=== PATIENT | male | born 1930 ===

== ENCOUNTER 2018-10-04 14:23 | Inpatient (IN) | payer OTHER ==
[~2018-10-04] VITALS: Ht 162.5 cm; Wt 72.6 kg
--- NOTE | ~2018-10-04 | PR ---
[place], [place] PROGRESS NOTE NAME: XAVIER KAHN UNIT #: [id number] ROOM: 312 DOCTOR: SHAD WHITEHEAD MD BIRTHDATE: [birth year] DOS: 10/07/2018 CHIEF COMPLAINT: The patient was somnolent. SUMMARY OF THE VISIT: The patient was resting at the time that I attempted to interview him. I called out his name, put my hand gently on the shoulder, but to no avail. He seemed very much sedate. Nurses report that he still has periods of extreme agitation and mood lability, but the nighttime dose may be hanging him over into the next day. MENTAL STATUS: Limited due to his overall lack of somnolence. PLAN: I will continue to push the Exelon patch to bring it more into the therapeutic range moving it from 4.6 mg a day to 9.5 mg a day. I will lower the nighttime dose of the Risperdal orally disintegrating tablet from 2 mg at 1700 hours to 1 mg at 1700 hours to see if this will lessen the hangover somnolence. We will engage in individual and hargrove milieu activity, returning to the least restrictive environment when psychiatrically stable. SHAD WHITEHEAD MD CM:PNTRANS 0837 [id number] SHAD WHITEHEAD MD 10/07/18 1002 interface
--- NOTE | ~2018-10-04 | PROC NOTE ---
[place], [place] PROCEDURE NOTE NAME: [facility]AHN [id number] UNIT #: [id number] ROOM: 312 DOCTOR: ASPEN STUBBS BIRTHDATE: [birth year] DOS: MODIFIED BARIUM SWALLOW MEDICAL HISTORY: The patient is a pleasant 88-year-old male with a primary diagnosis of major depression, recurrent with psychotic features, and Alzheimer's dementia. PAST MEDICAL HISTORY: Includes anemia, benign prostatic hyperplasia, debility, hypothyroidism, and frequent urinary tract infection. Bedside swallowing evaluation was completed by speech language pathologist with recommendations for modified barium swallow to assess for aspiration and determine least restrictive and safest diet level. The patient has a history of being uncooperative; however, he was very cooperative for this procedure and the procedure was completed in conjunction with the radiologist. METHODS AND MATERIALS: The patient was seated upright in a wheelchair. He was viewed in the lateral plane. The patient was administered thin liquid via cup and three average size bolus amount as well as two full teaspoon of applesauce coated with barium. The patient was edentulous and immediately prior to this fluoroscopic study while he was in the fluoroscopy room, the staff members that had accompanied him reported he had pulled chunks of chicken out that he had just had for lunch out of his oral cavity. At bedside, it was recommended the patient be placed on a pureed diet. The patient was cooperative, was able to follow simple commands. He was able to administer and give himself an isolated and two sequential sips of thin liquid; however, he was assisted by FORMS BUILDER with a full two full teaspoon of applesauce mixed with barium. ORAL PHASE: The patient demonstrated moderate delay in timing to prepare a bolus and transferred anterior to posterior. Tongue to palate contact was limited and bolus formation and cohesion and control was reduced. The cohesion was moderately reduced, but control was judged as mildly reduced on thin and applesauce consistencies. The patient demonstrated mild oral residue; however, it was not of concern on all consistencies in the oral cavity. Both consistencies were noted to fall over the base of the tongue with the pureed applesauce following slower than the thin liquid and where they would fill up the vallecula and the swallow would be triggered. The average swallow time for the pharyngeal phase was 5-5.5 seconds with approximately 2.5-3.0 seconds at the level of the vallecula where the swallow was eventually triggered. Anterior preparation and attempts to orally prepare a bolus with tongue pumping applesauce were noted, probably due to reduced cognitive status and some perseveration. Solid and regular consistency was not administered due to a history of being noncooperative as well as the pureed diet being recommended at bedside due to edentulous status, confused status, and reduced cognition as well as pocketing of solid food in the cheeks and oral cavity at bedside. PHARYNGEAL PHASE: The patient demonstrated moderately deep penetration of thin liquids. It was deeper with consecutive sips versus a single isolated sip of thin liquid via cup; however, no aspiration was noted. He did not respond to [place], [place] PROCEDURE NOTE NAME: XAVIER KAHN UNIT #: [id number] ROOM: [facility] DOCTOR: ASPEN STUBBS BIRTHDATE: [birth year] the penetration and it was completely cleared there was no residue noted in the laryngeal vestibule. Pharyngeal phase was not judged as putting patient at risk for safe feeding and swallowing at this time as long as recommendations for diet and pull over machine operator strategies are implemented. The patient did demonstrate a slightly forward kyphotic natural posture, which may have approximated a slight chin tuck, which may have provided for some laryngeal or airway protection. There was very mild oral residue noted through the pharynx, mostly in the vallecula and tongue base. RECOMMENDATIONS AND IMPRESSION: It is recommended the patient be supervised for all meals and encourage independent intake. It is recommended he be seated upright with hip flexion at 90 degrees with his feet on the floor and not recline and possibly FORMS BUILDER will trial a nosey cup and straw to encourage a chin tuck posture more than what was naturally observed during the modified barium swallow for laryngeal protection, airway protection and it will be assessed at bedside by FORMS BUILDER and we will follow him for therapy. It is recommended he take single small sips of liquid via cup or straw and not consecutive sips and drinks and to avoid any tipping back of the head or head and neck extension during meals. It is recommended he alternates liquids with food and for staff to check oral cavity at the end of every meal and clear any pocketing food that is noted. It is also recommended that the alternate chills and warm foods to increase sensory awareness and oral awareness during meals. It is also recommended that food be flavored appropriately and as tolerated by recommendations for his diet level. Speech therapy to follow the patient at bedside to assess train caregivers on strategies and diet recommendations. Thank you for this referral. ASPEN STUBBS CM:PROCNOTE:PROCEDURE NOTE 1351 [id number] ASPEN STUBBS
--- NOTE | ~2018-10-04 | PR ---
[place], [place] PROGRESS NOTE NAME: XAVIER KAHN UNIT #: [id number] ROOM: 312 DOCTOR: SHAD WHITEHEAD MD BIRTHDATE: [birth year] DOS: 10/20/2018 INTERVAL NOTE CHIEF COMPLAINT: "That would be good, I will have some more coffee." SUMMARY OF THE VISIT: The patient was interviewed as he was finishing his breakfast. He had over 3/4 of his plate eaten and requested I get him some more sausage, although he could not name it, but just pointed to it. He was bright and pleasant upon approach and offered no other complaints. There was no agitation or aggression. There was no mood lability. Likewise, there was no sedation, somnolence, extrapyramidal symptoms or tardive dyskinesia. MENTAL STATUS: He is alert and oriented with significant time gaps. Mood does seem to be trending towards euthymia and affect is more appropriate. There is no danny, hypomania or psychosis. Short-term memory continues to be problematic. PLAN: I will continue his current psychotropics. Continue to engage in individual and hargrove milieu activity, returning then to the least restrictive environment when psychiatrically stable. SHAD WHITEHEAD MD CM:PNTRANS [id number] SHAD WHITEHEAD MD 10/20/18 5700 interface
--- NOTE | ~2018-10-04 | PR ---
[place], [place] PROGRESS NOTE NAME: XAVIER KAHN UNIT #: [id number] ROOM: 312 DOCTOR: SHAD WHITEHEAD MD BIRTHDATE: [birth year] DOS: 10/23/2018 CHIEF COMPLAINT: "Well if I am going, you are going to have to bring me my bags." SUMMARY OF THE VISIT: The patient was interviewed as he was sitting in the dining area, interacting with a female peer as well as a staff member. He was very pleasant and engaging in conversation with me, much more awake and alert, much more spontaneous. He still is confused and at times, his responses did not make sense to the questions asked of him, but he was pleasant in doing so. I did not see the presence of sedation, somnolence, extrapyramidal symptoms or tardive dyskinesia. MENTAL STATUS: He is alert and oriented to person, possibly place, not to time. Mood does seem to be trending solidly towards euthymia. Affect is much more appropriate. There is no symptom suggestive of danny, hypomania or psychosis. Short term memory continues to be very problematic. PLAN: I will maintain his current psychotropic regimen, continue to engage in individual and hargrove milieu activity. We are awaiting for certification to be able to discharge to [facility] and will do so once this is obtained, SHAD WHITEHEAD MD CM:PNTRANS [id number] SHAD WHITEHEAD MD 10/24/18 0352 interface
--- NOTE | ~2018-10-04 | PR ---
[place], [place] PROGRESS NOTE NAME: XAVIER KAHN UNIT #: [id number] ROOM: 312 DOCTOR: SHAD WHITEHEAD MD BIRTHDATE: [birth year] DOS: 10/18/2018 INTERVAL NOTE CHIEF COMPLAINT: "They said they were going to get me some coffee." SUMMARY OF THE VISIT: The patient was interviewed as he was sitting in a Lacy chair. He had his breakfast completed and was sitting with a cup of coffee that was 3[address] it [address]. He was pleasant and cooperative during the interview, but very confused and oftentimes his responses to me did not make sense. There was no agitation or aggression. There was no mood lability noted. Likewise, there was no sedation, somnolence, extrapyramidal symptoms, or tardive dyskinesia. MENTAL STATUS: He is alert and oriented to person, possibly place, although doubtful, not to time. Mood is fairly euthymic. Affect is appropriate. There is no danny, hypomania or psychosis. Short term memory continues to be problematic. PLAN: I will maintain his current psychotropic medication. Speech was in to reevaluate his swallow issues and felt that he is now swallowing better. This seems to be secondary to the Cogentin being added and they have advanced his diet to regular. We will continue to support and monitor. Continue to engage in individual and hargrove milieu activity, returning then to the least restrictive environment when psychiatrically stable. SHAD WHITEHEAD MD CM:PNTRANS 5 16 SHAD WHITEHEAD MD 10/18/18 1818 interface
--- NOTE | ~2018-10-04 | WRIGHTHP ---
[place], [place] PATIENT HISTORY AND PHYSICAL EXAM [id number] #: [id number] ROOM: 312 DOCTOR: SHAD WHITEHEAD MD BIRTHDATE: [birth year] DOS: 10/05/2018 INITIAL PSYCHIATRIC EVALUATION CHIEF COMPLAINT: "Oh this is a good breakfast." HISTORY OF PRESENT ILLNESS: This is an 88-year-old white male who was referred here from [facility] due to increase the mood lability and agitation. The patient apparently was living in a chcf, but moved in not too long ago with one of his daughters, this move did not go well. Once there with his daughter, he was found to be so confused and disoriented. He was not attending to his ADLs. He was not sleeping or eating well. He was episodically noncompliant with his medications and he became verbally and physically aggressive towards the daughter, requiring her to take him ultimately to the Emergency Room at [facility]. Because of the severity of his symptoms, it was felt that an inpatient psychiatric stabilization was warranted. PAST MEDICAL HISTORY: Remarkable for anemia, benign prostatic hyperplasia, debility, hypothyroidism, frequent UTIs. PAST SOCIAL HISTORY: He does not smoke cigarettes, use illicit drugs or drink alcohol. ALLERGIES: He does list an allergy to ABILIFY. STRENGTHS: Ambulatory, good verbal skills, supportive family. WEAKNESSES: Cognitive decline, poor coping skills. MENTAL STATUS: He is alert and oriented to person, possibly place, not to time. Mood does seem to be wildly labile with some depressive overtones noted. There is no symptom suggestive of danny, hypomania. He does process conversation slowly and oftentimes, his responses are off base and inappropriate. Short-term memory remains very problematic. DIAGNOSES: Major depression, recurrent with psychotic features, Alzheimer's dementia. PLAN: I have already discontinued his Seroquel, trazodone and p.r.n. Zyprexa. In lieu of Risperdal, I have started him on Exelon and Namenda to impact positively on ADLs, behavior and cognition. Given that the depressive component, I will start him on Remeron 15 mg at bedtime. We will engage in individual and hargrove milieu activity, returning to the least restrictive environment when psychiatrically stable. [place], [place] PATIENT HISTORY AND PHYSICAL EXAM NAME: XAVIER KAHN UNIT #: [id number] ROOM: 312 DOCTOR: SHAD WHITEHEAD MD BIRTHDATE: [birth year] SHAD WHITEHEAD MD CM:HISPHYS:PATIENT HISTORY AND PHYSICAL EXAMINATION [id number] SHAD WHITEHEAD MD 10/05/18 0911 interface
--- NOTE | ~2018-10-04 | EKG ---
[place], [place] ELECTROCARDIOGRAM REPORT NAME: XAVIER KAHN UNIT #: [id number] ROOM: 312 DOCTOR: CONCEPCION DRAFT REPORT BIRTHDATE: [birth year] [facility] Test Date: 2018-10-05 Test Time: 08:32:55 Pat Name: XAVIER KAHN Department: Room: 312 1 Gender: M Cp Bleacher Operator: Ginger Arriola : 1930 Requested By: NALLELY ORTIZ Order Number: [id number] Reading MD: Dillon Jordan MD Measurements Intervals [place] Rate: 70 P: -6 [place]: 177 QRS: -41 QRSD: 106 T: 44 QT: 412 QTc: 445 Interpretive Statements Sinus rhythm Multiple ventricular premature complexes Left axis deviation Low voltage, precordial leads No previous ECG available for comparison Electronically Signed On 10-05-2018 9:47:54 PDT by Dillon Jordan MD CM:EKGRPT:ELECTROCARDIOGRAM REPORT 0832 0947 NALLELY ORTIZ EPIPHANY DRAFT REPORT NALLELY ORTIZ
--- NOTE | ~2018-10-04 | PR ---
[place], [place] PROGRESS NOTE NAME: XAVIER KAHN UNIT #: [id number] ROOM: 312 DOCTOR: SHAD WHITEHEAD MD BIRTHDATE: [birth year] DOS: 10/19/2018 CHIEF COMPLAINT: "I am ready for breakfast." SUMMARY OF THE VISIT: The patient was interviewed as he was resting quietly in a Lacy chair. At first, he was sleeping, but he awoke easily and engaged readily in conversation, reporting that he had not yet eaten breakfast. This fact was confirmed by nurse's aides who reported that he was sleeping when they offered him breakfast and they were going to give him his breakfast now. Nurses report that he had a very good day yesterday until late afternoon, early evening when his behavior became so problematic, it required him to have a p.r.n. with resultant somnolence. This morning, he was bright and pleasant, although somewhat somnolent. There was no agitation or aggression noted. MENTAL STATUS: He is alert and oriented to self, unclear of place, certainly not time. Mood does seem to be relatively euthymic this morning as has most mornings. There is no hypomania or danny. There was no gross psychosis. Short-term memory continues to be problematic. PLAN: I will go ahead and increase his 1700 dose of Risperdal from 0.5 mg to 1 mg to see if this can head off the . I may have to adjust the time accordingly, but we will monitor over the next day or two to determine the appropriate time and dose of the Risperdal to give him to prevent the escalation in behavior. We will continue to engage him in individual and hargrove milieu activity, returning to the least restrictive environment when psychiatrically stable. SHAD WHITEHEAD MD CM:PNTRANS 0008 SHAD WHITEHEAD MD 10/20/18 0415 interface
--- NOTE | ~2018-10-04 | PR ---
[place], [place] PROGRESS NOTE NAME: XAVIER KAHN UNIT #: [id number] ROOM: 312 DOCTOR: SHAD WHITEHEAD MD BIRTHDATE: [birth year] DOS: 10/09/2018 CHIEF COMPLAINT: "Yeah, I'll take a cup of coffee black with sugar, please." SUMMARY OF THE VISIT: The patient was interviewed as he was sitting in a Lacy chair. He had already eaten his breakfast and was sitting quietly watching television. He stopped and engaged in conversation with me reporting that he slept well, had a good breakfast and was feeling well. I asked him if he wanted or needed anything else and he did ask for the cup of black coffee with sugar. He was bright and pleasant. Nurses, however, note that he does sundown in the evening and becomes increasingly confused and agitated. MENTAL STATUS: This morning, he is alert and oriented to person, place, approximate to time. Mood does seem to be more euthymic. Affect is more appropriate. There is no danny or hypomania. No gross psychosis at this time. He does process conversation slowly and his responses are not always appropriate. Short-term memory remains problematic. PLAN: I will increase his Namenda from 5 mg twice a day to 10 mg in the morning and 5 mg at bedtime to augment the effectiveness of the Exelon patch, continue to engage in individual and hargrove milieu activity, returning to the least restrictive environment when psychiatrically stable. SHAD WHITEHEAD MD CM:PNTRANS 0922 1637 SHAD WHITEHEAD MD 10/09/18 1638 interface
--- NOTE | ~2018-10-04 | PR ---
[place], [place] PROGRESS NOTE NAME: XAVIER KAHN UNIT #: [id number] ROOM: 312 DOCTOR: SHAD WHITEHEAD MD BIRTHDATE: [birth year] DOS: 10/06/2018 CHIEF COMPLAINT: The patient was somnolent. SUMMARY OF THE VISIT: The patient was resting in a chair. He was sleeping heavily. He had a very poor afternoon and evening and nurses report that after 6 p.m., he became increasingly combative and agitated and aggressive. He was urinating on the floor stripping naked, combative with hands on care, sexually inappropriate to the point of grabbing female staff's breasts and buttocks. The patient was very difficult to redirect and required p.r.n. intervention. MENTAL STATUS: Limited due to his somnolence. PLAN: I will discontinue the Remeron in lieu of Celexa 10 mg in the morning to decrease libido and combat depressive symptoms. I will increase his Namenda to 5 mg b.i.d. as it augments the effectiveness of the Exelon to improve and maintain ADLs, behavior and cognition. I will increase his Risperdal to 0.5 mg in the a.m., increasing the nighttime dose to 2 mg and also giving it at 1700 hours. We will engage in individual and hargrove milieu activity, returning to the least restrictive environment when psychiatrically stable. SHAD WHITEHEAD MD CM:PNTRANS 3 SHAD WHITEHEAD MD 10/06/1825 interface
--- NOTE | ~2018-10-04 | PR ---
[place], [place] PROGRESS NOTE NAME: XAVIER KAHN UNIT #: [id number] ROOM: 312 DOCTOR: SHAD WHITEHEAD MD BIRTHDATE: [birth year] DOS: 10/15/2018 INTERVAL NOTE CHIEF COMPLAINT: "This breakfast is good." SUMMARY OF THE VISIT: The patient was interviewed as he was sitting, eating his eggs. He engaged readily in conversation. He was bright and pleasant, but confused. He offered no complaints and seemed content eating his breakfast without any difficulty. MENTAL STATUS: He is alert and oriented to person, unclear place, certainly not time. Mood for the most part seems fairly euthymic this morning. There is no symptom suggestive of hypomania or danyn. There were no gross psychotic symptoms. No auditory or visual hallucinations were present. No paranoia or delusions. Short term memory continues to be problematic. PLAN: I will maintain his current psychotropic regimen. We will monitor for his sundowning behavior and see if the evening medicines need to be adjusted. Meanwhile, we will support and monitor and engage in individual and hargrove milieu activities. SHAD WHITEHEAD MD CM:PNTRANS 0858 [id number] SHAD WHITEHEAD MD 10/15/18 0916 interface
--- NOTE | ~2018-10-04 | PR ---
[place], [place] PROGRESS NOTE NAME: XAVIER KAHN UNIT #: [id number] ROOM: 312 DOCTOR: SHAD WHITEHEAD MD BIRTHDATE: [birth year] DOS: 10/10/2018 INTERVAL NOTE CHIEF COMPLAINT: "Did I have lunch yet, am I cold." SUMMARY OF THE VISIT: This patient was interviewed as he was resting quietly on a mattress placed in the quiet room next to the drawing of a fireplace. The patient seemed to respond by turning every question I asked of him to a question back to me. He was pleasant, however, and not agitated. Nurses report that he does have episodes of becoming increasingly more agitated, most of these occurring later in the afternoon and early evening. He does respond though to redirection. MENTAL STATUS: Limited by his inability to participate fully. For the most part, he was somewhat echolalic responding to my questions with a question of its own. He was not exhibiting any agitation or aggression. There were no signs of hypomania or danny and there were no gross psychotic symptoms. I was not able to fully test his memory because he was somewhat somnolent. PLAN: At this point in time, I will bring the Namenda to therapeutic at 10 b.i.d. I will renew his p.r.n. Ativan should he require intervention. Continue to engage in individual and hargrove milieu activity, returning to the least restrictive environment when psychiatrically stable. SHAD WHITEHEAD MD CM:PNTRANS 1321 [id number] SHAD WHITEHEAD MD 11/21/18 0931 interface
--- NOTE | ~2018-10-04 | PR ---
[place], [place] PROGRESS NOTE NAME: XAVIER KAHN UNIT #: [id number] ROOM: 312 DOCTOR: SHAD WHITEHEAD MD BIRTHDATE: [birth year] DOS: 10/17/2018 CHIEF COMPLAINT: "I need something green and red here." SUMMARY OF THE VISIT: The patient was interviewed as he was finishing his breakfast. He had everything, but his cream of wheat eaten. He seemed fixated on wanting something else and one of the nurses' aid mentioned to me that he was looking for something green and red on his plate. He was pleasant and cooperative and voiced no other complaints. At times, he makes little sense in his responses, but he is pleasant in doing so. There was no agitation or aggression and no inappropriate behavior. MENTAL STATUS: He remains alert and oriented to self, possibly place, not to time. Mood for the most part is fairly euthymic. There was no hypomania or danny. No gross psychosis noted. Short term memory continues to be problematic. PLAN: I will have them recheck a swallow eval. The last swallow eval that was done was done just as he was starting on the Cogentin and did not have an adequate time to respond to it. I will hope that he will pass the swallow evaluation and his diet then can be advanced and he can eat more normal foods. Otherwise, I will maintain his current psychotropic regimen, which includes Exelon capsules, Namenda, Remeron, and Risperdal. We will discharge then to the least restrictive environment when psychiatrically stable. SHAD WHITEHEAD MD CM:PNTRANS 0928 1304 SHAD WHITEHEAD MD 10/17/18 1305 interface
--- NOTE | ~2018-10-04 | PR ---
[place], [place] PROGRESS NOTE NAME: XAVIER KAHN UNIT #: [id number] ROOM: 312 DOCTOR: SHAD WHITEHEAD MD BIRTHDATE: [birth year] DOS: 10/12/2018 INTERVAL NOTE CHIEF COMPLAINT: "Yeah, I guess it is time for lunch. Is it here?" SUMMARY OF THE VISIT: The patient was interviewed as he was sitting in a Lacy chair. He engaged readily in conversation. It was short and simple, very vague. There was no agitation or aggression despite the fact that I was rounding with a female medical student, he was not sexually inappropriate in any way. Nurses do note that speech therapy has been up in our concern that he is having swallow difficulties. It is possible this could be related in part to his Risperdal. MENTAL STATUS: He is alert and oriented with significant time gaps, certainly not oriented to how long he has been here. Mood does seem to be relatively euthymic this morning. There is no danny or hypomania. There is no gross psychosis noted. PLAN: I will go ahead and add 0.5 mg of Cogentin twice daily. Continue to monitor and support, engage in individual and hargrove milieu activity, returning to the least restrictive environment when psychiatrically stable. SHAD WHITEHEAD MD CM:PNTRANS [id number] SHAD WHITEHEAD MD 10/12/18 1708 interface
--- NOTE | ~2018-10-04 | PR ---
[place], [place] PROGRESS NOTE NAME: XAVIER KAHN UNIT #: [id number] ROOM: 312 DOCTOR: SHAD WHITEHEAD MD BIRTHDATE: [birth year] DOS: 10/22/2018 CHIEF COMPLAINT: "Grab a crayon and help me." SUMMARY OF THE VISIT: The patient was interviewed as he was engaging in an activity. He was coloring a coloring page very precisely. He was bright and pleasant upon approach and voiced no complaints. He even offered for me to help him. Nurses report that he had a bad evening and did not sleep well, but did eventually when he was given some Vistaril, which is very effective as a p.r.n. without sedation or somnolence afterwards. MENTAL STATUS: He is alert and oriented to person, possibly place, but not to time. Mood does seem to be more euthymic. Affect is more appropriate. There is no danny or hypomania. There is no gross psychosis. Short term memory continues to be poor. PLAN: I will go ahead and order him Rozerem as an additional p.r.n. in case he requires intervention to aid sleep. This is a non-addicting option. We will continue to engage in individual and hargrove milieu activity, returning to the least restrictive environment when psychiatrically stable. SHAD WHITEHEAD MD CM:PNTRANS [id number] SHAD WHITEHEAD MD 10/22/18 1314 interface
--- NOTE | ~2018-10-04 | CON ---
[place], [place] REPORT OF CONSULTATION NAME: XAVIER KAHN UNIT #: [id number] ROOM: 312 DOCTOR: PHD JUSTIN ETTA BIRTHDATE: [birth year] DOS: 10/09/2018 HISTORY OF PRESENT ILLNESS: The patient is an 88-year-old male referred by Dr. Rodríguez for competency evaluation. At the present time, the patient is on the [facility] at [facility]. He had been living in a longterm, but moved in recently with one of his daughters, which was not successful for the patient as he became confused and disoriented. He states that he is and has 8 children; one of his daughters is his power of assistant prosecuting attorney. 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 He also states that he served in the [employer] during . He does not drink alcohol, smoke cigarettes or use illegal drugs. PAST MEDICAL HISTORY: Anemia, benign prostatic hyperplasia, debility, hypothyroidism and frequent UTIs. MEDICATIONS: Namenda, Exelon, Remeron, Risperdal, Cardura, Synthroid, Zofran, Systane, Geodon and Ativan. The patient was sitting comfortably, in no apparent distress. He was awake, alert and oriented to person. He was pleasant and cooperative with the evaluation. Mood was stable and affect was restricted in range. He denied suicidal and homicidal ideation, plan, and intent. Speech was slow and at times difficult to understand. Receptive and expressive language appeared within normal limits conversationally. At times, the patient appeared to be responding to unseen objects such as an animal and a picture of [place]. He also stated that a patient walking by was from [place]. He did not appear to be in any distress when discussing this. When discussing [place], his thoughts appeared disjointed with significant confusion. He had a difficult time with both short and long-term memory. Insight and judgment were poor. In my opinion, the patient is not competent to make informed healthcare decisions at this time and all healthcare decisions should be deferred to his power of assistant prosecuting attorney. DIAGNOSIS: Major depressive disorder, recurrent, severe with psychotic features; unspecified neurocognitive disorder. RECOMMENDATIONS: In my opinion, the patient is not competent to make informed healthcare decisions and all healthcare decisions should be deferred to his healthcare power of assistant prosecuting attorney. Thank you very much for this consult. [place], [place] REPORT OF CONSULTATION NAME: XAVIER KAHN Kendrick UNIT #: [id number] ROOM: 312 DOCTOR: JUSTIN, PHD ETTA BIRTHDATE: [birth year] Lexi Hassan, PhD CM:CONSTR:REPORT OF CONSULTATION 1629 10/10/18 1411 interface
--- NOTE | ~2018-10-04 | PR ---
[place], [place] PROGRESS NOTE NAME: XAVIER KAHN UNIT #: [id number] ROOM: 312 DOCTOR: SHAD WHITEHEAD MD BIRTHDATE: [birth year] DOS: 10/21/2018 CHIEF COMPLAINT: "Morning." SUMMARY OF THE VISIT: The patient was interviewed as he was resting in a Lacy chair in the dining area. He awoke with some prompting. He engaged in brief superficial conversation and voiced no complaint. There was no agitation or mood lability. He requested some hot coffee and then closed his eyes and nodded off back into sleep. MENTAL STATUS: He is alert and oriented to person, unclear place, certainly not time. Mood for the most part is euthymic. Affect is appropriate. There is no hypomania or danny. There are no gross psychotic symptoms. He does process conversation slowly and short term memory continues to be poor. PLAN: I will maintain his current psychotropic regimen, engage in individual and hargrove milieu activity, returning to the least restrictive environment when psychiatrically stable. SHAD WHITEHEAD MD CM:PNTRANS [id number] SHAD WHITEHEAD MD 10/21/18 1132 interface
--- NOTE | ~2018-10-04 | PR ---
[place], [place] PROGRESS NOTE NAME: XAVIER KAHN UNIT #: [id number] ROOM: 312 DOCTOR: SHAD WHITEHEAD MD BIRTHDATE: [birth year] DOS: 10/11/2018 INTERVAL NOTE CHIEF COMPLAINT: The patient was somnolent and sleeping in his Lacy chair, unresponsive to my verbal prompts SUMMARY OF THE VISIT: The patient was attempted to be interviewed as he was sitting in his Lacy chair. I attempted to call his name repeatedly. I did touch his shoulder and call his name and he did not respond. The patient had become increasingly agitated as the day progressed requiring p.r.n. intervention with Ativan, which eventually did stop the agitation, but unfortunately is causing residual somnolence this morning. My mental status examination is impaired due to his overall level of somnolence. PLAN: I will go ahead and increase the Exelon capsules from 4.5 mg twice a day to 6 mg twice a day to maximize potential benefit in improving or maintaining ADLs, behavior and cognition. We will monitor and support. We will engage in individual and hargrove milieu activity, returning to the least restrictive environment when psychiatrically stable. HSAD WHITEHEAD MD CM:PNTRANS [id number] SHAD WHITEHEAD MD 10/11/18 2336 interface
--- NOTE | ~2018-10-04 | PR ---
[place], [place] PROGRESS NOTE [id number] UN[facility] #: [id number] ROOM: 312 DOCTOR: SHAD WHITEHEAD MD BIRTHDATE: [birth year] DOS: 10/08/2018 CHIEF COMPLAINT: "Will have some coffee, but I have to go get my money first." SUMMARY OF THE VISIT: The patient was interviewed as he was sitting in a Lacy chair in the dining area. When asked if he had breakfast, he reported that he had yet to pay for it. When I asked if he would like some coffee again, he stated he needed to pay for it first. When I told him that all of this had been taking care of for him, he smiled, but still wanted to go get his money. He was fairly pleasant upon approach this morning. Nurses, however, report that he did not sleep very well last night, only about 4-1/2 hours and did not eat dinner. He remains grossly confused. MENTAL STATUS: He is alert and oriented to self, unclear place, certainly not time. Mood seems still down. Affect flat, blunted. There is no danny or hypomania or gross psychosis. Short term memory is poor and he processes slowly. PLAN: Yesterday, I discontinued his Remeron in lieu of Celexa. However, I do think lack of sleep and poor appetite outweigh the risk of the sexually inappropriate behavior, so I will switch him off the Celexa back on to the Remeron, if the sexual behavior becomes problematic, I have other options to decrease this behavior. We will monitor and support, engage in individual and hargrove milieu activity, returning to the least restrictive environment when psychiatrically stable. SHAD WHITEHEAD MD CM:PNTRANS [id number] SHAD WHITEHEAD MD 10/08/18 1006 interface
--- NOTE | ~2018-10-04 | PR ---
[place], [place] PROGRESS NOTE NAME: XAVIER KAHN UNIT #: [id number] ROOM: 312 DOCTOR: SHAD WHITEHEAD MD BIRTHDATE: [birth year] DOS: 10/16/2018 INTERVAL NOTE CHIEF COMPLAINT: "If you are buying, I have a cup of coffee." SUMMARY OF THE VISIT: The patient was interviewed as he was eating his second breakfast of the morning. He was bright and pleasant upon approach. He engaged readily in conversation. When I did ask him if he would like a cup of coffee, he replied black please if I was buying. He was not agitated in any way. There were no inappropriate comments made. No sexual behavior was noted and he seems to be outwardly tolerating his current medication regimen. MENTAL STATUS: He is alert and oriented to person, possibly place, certainly not time. Mood does seem to be trending towards euthymia. Affect is much more appropriate. There is no danny or hypomania noted. There are no gross psychotic symptoms. Short term memory continues to be problematic. Otherwise, he is intact. PLAN: I will continue his current psychotropic regimen, continue to engage in individual, and hargrove milieu activities, returning to the least restrictive environment when psychiatrically stable. SHAD WHITEHAED MD CM:PNTRANS [id number] SHAD WHITEHEAD MD 10/16/18 1413 interface
[2018-10-04] MEDS ORDERED: ACETAMINOPHEN325 M2 PO (14:36)
[2018-10-04] MEDS ORDERED: CARDURA4 MG PO (14:37)
[2018-10-04] MEDS ORDERED: Synthroid,Lev100 MCG PO (14:39)
[2018-10-04] MEDS ORDERED: ATIVAN2 MG/1 ML IV (14:46)
[2018-10-04] MEDS ORDERED: ATIVAN0.5 MG PO (14:47)
[2018-10-04] MEDS ORDERED: SYSTANE BALANCE10 M1 OP (14:49)
[2018-10-04] MEDS ORDERED: ZYPREXA2.5 MG PO (14:49)
[2018-10-04] MEDS ORDERED: ZYPREXA2.5 MG IM (14:51)
[2018-10-04] MEDS ORDERED: QUETIAPINE FUMA50 M1 PO (14:55)
[2018-10-04] MEDS ORDERED: ONDANSETRON4 MG/5 M2 IV (14:55)
[2018-10-04] MEDS ORDERED: TRAZODONE50 MG PO (15:05)
[2018-10-04 19:45] VITALS: BP 103/71
--- NOTE | 2018-10-04 19:45 | NUR ---
XAVIER KAHN a 88 year old M admitted via ambulance from the OTHER as a emergency 72 hr. hold admission. Arrived on unit at 194. ALLERGIES: ABILIFY. Vital signs are: 97.9-78-17 103/71. The client is currently pink slipped and refuses to participate in any of admission paperwork. Admitted under the services of Dr. CHARLEY BLANCO,SHAD. A search was conducted and hazardous articles were removed. Client was oriented to the unit. MONET BERNARD
[2018-10-04 20:00] VITALS: BP 103/71
--- NOTE | 2018-10-04 20:00 | NUR ---
Called and notified Dr. Cortez regarding patient arrived for admission.
--- NOTE | 2018-10-04 20:30 | NUR ---
Dr. Lane here and examined patient. Awaiting orders.
--- NOTE | 2018-10-04 20:35 | NUR ---
Healing scab noted on patient's rt.outer elbow. Made aware to doctor.
--- NOTE | 2018-10-05 05:44 | NUR ---
Patient did not sleep at all throughout shift. Q 15 minute shift check continued and maintained.
[2018-10-05 07:24] LABS: BASO % 0.2 % (0.0-1.0); EOS # 0.1 10*3/uL (0.0-0.4); EOS % 0.7 % (1.0-4.0); HEMOGLOBIN 10.9 g/dl (14.0-18.0); LYMPH # 1.3 10*3/uL (1.3-4.4); MEAN CELL VOLUME 95.8 fl (80.0-94.0); MEAN CORPUSCULAR HGB 30.7 pg (27.0-31.0); MEAN CORPUSCULAR HGB CONC 32.1 g/dl (33.0-37.0); MONO # 0.6 10*3/uL (0.1-1.0); MONO % 7.3 % (3.0-9.0); NEUT # 6.7 10*3/uL (2.3-7.9); NEUT % 76.6 % (47.0-73.0); PLATELET COUNT AUTOMATED 182 10*3/uL (130-400); RED BLOOD COUNT 3.55 10*6/uL (4.50-5.90); RED CELL DISTRI WIDTH 14.6 % (0-14.5); WHITE BLOOD COUNT 8.7 10*3/uL (4.8-10.8)
[2018-10-05 07:25] VITALS: BP 118/55
[2018-10-05 08:04] LABS: ALBUMIN 2.8 gm/dl (3.1-4.5); ALKALINE PHOSPHATASE 185 U/L (45-117); BUN 14 mg/dl (7-24); CHLORIDE 108 mmol/L (98-107); CHOLESTEROL 140 mg/dL (<200); CREATININE 0.88 mg/dL (0.70-1.30); FREE T4 1.18 ng/dl (0.76-1.46); HDL CHOLESTEROL 45 mg/dl (40-60); LDL CHOLESTEROL 80 mg/dL (9-159); POTASSIUM 3.6 mmol/L (3.5-5.1); SGOT/AST 25 IU/L (3-35); SGPT/ALT 42 U/L (12-78); SODIUM 140 mmol/L (136-145); TRIGLYCERIDES 73 mg/dl (<150); VLDL CHOLESTEROL 15 mg/dL (6-40)
--- NOTE | 2018-10-05 08:15 | NUR ---
Treatment Plan meeting with Dr. Marcos RN and Agricultural Chemist. Plan for discharge Next week. Will reach out to family today to discuss discharge Plans.
--- NOTE | 2018-10-05 08:18 | NUR ---
PATIENT IS ALERT TO SELF, ABLE TO VOICE NEEDS. COMPAINING OF CHEST PAIN, NOT ABLE TO RATE PAIN. ASKED HOW LONG PAIN BE GOING ON? PATIENT STATED 50. ASKED IF PAIN IS SPREADING? PATIENT STATED YES, BUT DID NOT STATE WHERE. NO FACIAL GRIMACING, NAUSEA OR VOMITING PRESENT. PATEINT EATING BREAKFAST WITHOUT DIFFICULTY. VITALS: 97.2, 89, 18, 113/73, 100% ON 2 LITERS.
[2018-10-05 08:32] VITALS: BP 108/58
--- NOTE | 2018-10-05 08:54 | NUR ---
PATIENT EKG AND TROPIN LEVELS ARE BACK, MANUAL BP108/58. DR. ORTIZ NOTIFED.
--- NOTE | 2018-10-05 09:29 | NUR ---
psychosocial hx completed.
[2018-10-05 09:30] LABS: VITAMIN D, 25-HYDROXY 30.4 ng/mL (30-100)
--- NOTE | 2018-10-05 09:54 | NUR ---
MANUAL BP 98/84, DR. ORTIZ NOTIFIED, HOLD CARDURA AND RECHECK BP IN 1 HR.
--- NOTE | 2018-10-05 11:08 | NUR ---
P: VOICING DELUSIONAL THOUGTHS OF BEING IN A BILLARD CLUB WHILE COLORING PICTURE AND AFTER TOILETING IN THE JUNGLE, AGGESSIVE WITH TOILETING NEEDS I: ONE ON ONE, REDIRECTED/REORIENTATION, STEP BY STEP INSTRUCTION DURING HANDS ON CARE. PROVIDED SPACE R: SPACE PROVIDED EFFECTIVE. PATIENT IS ALERT TO PERSON WITH CONFUSION; NOT ABLE TO COMPREHEND WITH WHAT IS BEING ASKED OF HIM OR FOLLOW SIMPLE DIRECTION. MOOD IS IRRITABLE AT TIMES. NO VOICED STATEMENT OF HI/SI OR PAIN. RESPONDING TO INTERNAL STIMULI. Q 15 MINUTE SAFETY CHECKS. MEDICATION COMPLIANT. P: CONTINUE TO MONITOR MOOD, CONFUSION AND AGGRESSION; PROVIDE ONE ON ONE, REDIRECTION/ORIENTATION AND SPACE NEEDED.
--- NOTE | 2018-10-05 11:30 | NUR ---
Spoke with patient Daughter Anaya via telephone. Pt. will require placement at discharge. Daughter has been caring for patient at home. His care has become overwhelming. She states that he was in the process at [facility] of transferring to [facility] and was sent here to [facility].
--- NOTE | 2018-10-05 15:49 | NUR ---
CAMILLA completed online. PASRR submitted successfully. Faxed required Documentation to [facility] for further review Assessment. Copy placed in Patient Chart.
--- NOTE | 2018-10-05 16:06 | NUR ---
Shift chart check completed.
[2018-10-05 20:00] VITALS: BP 149/84
--- NOTE | 2018-10-06 00:44 | NUR ---
PT PRESENTED WITH A LABILE MOOD THIS EVENING. PLEASANT ONE MINUTE & BECOMES AGITATED WITH HANDS ON CARE. ALERT TO PERSON ONLY. UNRECEPTIVE TO REDIRECTIONS & REQUIRES DIRECTIVES & PROMPTING. ATE HS SNACK. COMPLIANT TAKING HS MEDICATIONS WHOLE & WAS GIVEN ATIVAN 1 MG PO @ 1999 FOR INCREASED ANXIETY & BEHAVIORS WHICH HAS BEEN EFFECTIVE PT WAS NOTED TO REST QUIETLY IN BED WITH NO COMPLAINTS VOICED.PT ALSO VOICED GRANDIOSE DELUSIONS & SATED THAT HE WAS WORKING ON HIS CAR WHILE SITTING INT A GERICHIAR .
--- NOTE | 2018-10-06 02:24 | NUR ---
PT WAS ASSISTED WITH A SHOWER EARLIER. ATIVAN HAS BEEN MINIMALLY EFFECTIVE & PT SLEPT IN BED FROM 5- 0. HE WAS ATTEMPTING TO CLIMB OUT OF BED SEVERAL TIMES. HE WAS INCONTINENT OF BM & URINE. WHEN GIVEN HANDS ON CARE HE ATTEMPTED TO HIT, KICK & BITE STAFF. PT WAS ASSISTED TO THE QUIET ROOM DIRECTLY IN FRONT OF THE NURSES STATION & HIS MATTRESS WAS LAID ON THE FLOOR & COVERED WITH BLANKETS FOR PTS SAFETY WHERE HE COULD BE WATCHED CLOSER. HE AGAIN ATTEMPTED TO HIT, KICK & BITE STAFF & WAS MEDICATED WITH GEODON 10 MG IM @ 0200 FOR INCREASED AGGRESSION & AGITATION.
--- NOTE | 2018-10-06 05:49 | NUR ---
GEODON HAS BEEN EFFECTIVE & PT HAS CALMED DOWN. HAS BEEN SLEEPING SINCE 0230.
--- NOTE | 2018-10-06 07:38 | NUR ---
PT REMAINS ON MATTRESS ON FLOOR AT THIS TIME, AWAKE AND ALERT, PT REFUSING TO LEAVE CLOTHING OR BLANKETS ON AT THIS TIME. REMAINS DIRECTLY ACROSS FROM NURSE'S STATION.
[2018-10-06 07:55] VITALS: BP 133/65
--- NOTE | 2018-10-06 08:43 | NUR ---
ON UNIT TO SEE PT AT THIS TIME, UPDATE GIVEN.
--- NOTE | 2018-10-06 09:30 | NUR ---
ON UNIT TO SEE PT AT THIS TIME
--- NOTE | 2018-10-06 11:03 | NUR ---
P- CONFUSION, MOOD LABILITY, POOR ST/LT MEMORY. NAPPING INTERMITTENTLY THROUGHOUT THE MORNING, EASILY AROUSABLE VIA VERBAL/TACTILE STIMULI. I- ORIENTATION, MOOD AND BEHAVIOR ASSESSED. ASSESSED PT FOR SI/HI, INTENT OR PLAN. ASSESSED PT FOR S/S HALLUCINATIONS, PARANOIA AND/OR DELUSIONS. MEDICATIONS ADMINISTERED PER PHYSICIAN'S ORDERS. ASSISTANCE WITH ADL CARE PROVIDED NEEDED. ENCOURAGED PT TO ATTEND AND PARTICIPATE IN RAYMOND MILIEU GROUPS AND ACTIVITIES. R- PT IS ALERT AND ORIENTED TO NAME ONLY, CONFUSION NOTED IN ALL OTHER AREAS. RESPS EASY AND EVEN ON ROOM AIR. MOOD REMAINS LABILE, AFFECT IS FLAT. SPEECH IS SOFT, IRRELEVANT AT TIMES, ABLE TO ANSWER SIMPLE QUESTIONS. PT DENIES SI/HI, INTENT OR PLAN. PT DENIES HALLUCINATIONS, NO RESPONSE TO INTERNAL STIMULI NOTED. NO PARANOIA OR DELUSIONS NOTED. PT NAPPING INTERMITTENTLY T/O MORNING THIS DATE, EASILY AROUSABLE VIA VERBAL/TACTILE STIMULI. NO DISTRESS NOTED. NO AGGRESSIVE BEHAVIORS OF THIS TIME IN THE SHIFT. P- PLAN TO CONTINUE CURRENT TREATMENT; CONTINUE TO MONITOR MOOD AND BEHAVIORS. PROVIDE APPROPRIATE REORIENTATION, REDIRECTION AND 1:1 NEEDED. CONTINUE TO ENCOURAGE MEDICATION COMPLIANCE WELL GROUP ATTENDANCE AND PARTICIPATION.
--- NOTE | 2018-10-06 11:44 | NUR ---
AM GROUP/EXERCISE/GAMES PT UNABLE TO ATTEND OR PARTICIPATE DUE TO LEVELS OF COGNITION. PT REMAINED SEATED IN FRONT OF NURSES STATION.
--- NOTE | 2018-10-06 11:58 | NUR ---
[facility], ANSWERS TO NAME WHEN CALLED, DECLINED LUNCH, STATES "NO, I'M FINE". PT ACROSS FROM NURSE'S STATION. Q15 MIN MONITORING CONTINUES.
--- NOTE | 2018-10-06 14:29 | NUR ---
PT COMPLIANT WITH HANDS ON CARE AT THIS TIME, INCONTINENCE CARE PROVIDED, PT LAYING IN BED RESTING AT THIS TIME. RESPS EASY AND EVEN ON ROOM AIR. BED ALARM ACTIVE AND AUDIBLE. BED IN LOWEST POSITION. Q15 MIN MONITORING CONTINUES PER POLICY.
--- NOTE | 2018-10-06 15:48 | NUR ---
SHIFT CHART CHECK COMPLETED.
--- NOTE | 2018-10-06 16:04 | NUR ---
PM GROUP/LEISURE SKILLS PT SLEEPING IN RECLINER ACROSS FROM NURSES STATION. PT WILL BE ENCOURAGED TO ATTEND AND PARTICIPATE IN FUTURE GROUP SESSIONS.
--- NOTE | 2018-10-06 17:54 | NUR ---
PT ALERT AND PLEASANT, ATE 90% OF DINNER WITH SET UP ASSIST FROM STAFF.
[2018-10-06 20:00] VITALS: BP 127/96
--- NOTE | 2018-10-06 21:26 | NUR ---
PT REMAINS CONFUSED WITH LABILE MOOD. AFFECT IS FLAT. SPEECH IS NONSENSICAL AT TIMES. PT BECAME INCREASINGLY RESTLESS AND DIFFICULT TO REDIRECT FROM APPROXIMATELY 5PM-8:30PM. PT REFUSED HS MEDICATIONS DESPITE MULTIPLE ATTEMPTS. PT STATES "NO, I DON'T WANT IT". PT DENIES SI/HI, INTENT OR PLAN. PT DENIES HALLUCINATIONS, NO RESPONSE TO INTERNAL STIMULI NOTED. NO PARANOIA OR DELUSIONS NOTED. REFUSED HS SNACK. PT FELL ASLEEP APPROXIMATELY 9PM AND IS RESTING QUIETLY AT THIS TIME WITH EYES CLOSED. Q15 MIN MONITORING CONTINUES.
--- NOTE | 2018-10-06 22:25 | NUR ---
PT AWAKE, TOLIETED AT THIS TIME WITH STAFF ASSIST X2. PT COMPLIANT WITH HANDS ON CARE. NO AGGRESSIVE BEHAVIORS AT THIS TIME.
--- NOTE | 2018-10-07 00:03 | NUR ---
24 HR chart check completed.
--- NOTE | 2018-10-07 04:54 | NUR ---
PT SLEPT FROM 2100 ON, CURRENTLY REMAINS RESTING QUIETLY
[2018-10-07 08:00] VITALS: BP 125/78
--- NOTE | 2018-10-07 10:37 | NUR ---
DR. BARRAZA ON UNIT TO SEE PT
--- NOTE | 2018-10-07 10:45 | NUR ---
PT AWAKEN BY STAFF PROVIDED HOC, PLEASEANT COOPERATIVE WITH STAFF. PT CONTINUES TO BE ALERT TO SELF ONLY, NO DELUSIONS, SI OR HI NOTED. MEDICAITON COMPLIANT AT THIS TIME. PT GUIDED TO GROUP THERAPY WITH 1 STAFF MEMBER SMILING AND PARTICIPATING. CONTINUE WITH 15 MIN CHECKS AT THIS TIME.
--- NOTE | 2018-10-07 12:08 | NUR ---
AM GROUP/EXERCISES/ART/GAMES PT ATTENDED SECOND PART OF GROUP TO OBSERVE. PT PLEASANT BUT DENIED ATTEMPTING ANY ACTUIVITY. PT EVENTUALLY FELL ASLEEP IN CHAIR TO WAKE AT THE END OF GROUP FOR LUNCH. PT WILL CONTINUE TO BE ENCOURAGED TO ATTEND AND PARTICIPATE TO BEST OF PT ABILITY IN FUTURE GROUP SESSIONS.
--- NOTE | 2018-10-07 17:04 | NUR ---
SHIFT CHART CHECK COMPLETED.
[2018-10-07 20:13] VITALS: BP 125/79
--- NOTE | 2018-10-07 21:23 | NUR ---
Patient alert to self only with confusion noted. Patient calm and pleasant with staff at this time. No SI/HI noted. No hallucinations/delusions noted at this time. Patient compliant with medications without any difficulty. Redirected when appropriate. Plan to encourage medication compliance and to continue to redirect when needed and appropriate. Q 15 minute safety checks continued and maintained. See [facility] flowsheet for further documentation.
--- NOTE | 2018-10-08 00:13 | NUR ---
24 HR chart check completed.
--- NOTE | 2018-10-08 05:31 | NUR ---
Patient slept approx. 4 1/2 hours throughout shift. Q 15 minute dafety checks continued and maintained.
[2018-10-08 07:25] VITALS: BP 122/77
--- NOTE | 2018-10-08 10:59 | NUR ---
PT SITTING IN HALLWAY AT THIS TIME, SMILING, LAUGHING WITH DR. BARRAZA. PT OFFERS NO C/O AT THIS TIME. RN MADE DR. BARRAZA AWARE OF PT MULTIPLE LOOSE STOOLS. DR. BARRAZA STATED HE WILL PLACE N.O.
--- NOTE | 2018-10-08 11:45 | NUR ---
AM GROUP/EXERCISES/GAMES PT ATTENDED GROUP DUIRING EXERCISES AND DID NOT PARTICIPATE. PT BEGAN TRYING TO SCOOT AROUND IN CHAIR AND BECAME A DISTARCTION TO OTHERS THEREFORE PT MOVED INTO NAIR WITH NURSES. PT WILL CONTINUE TO BE ENCOURAGED TO ATTEND AN DPARTICIPATE IN FUTUR EGROUP SESSIONS.
--- NOTE | 2018-10-08 15:50 | NUR ---
GROUP/KALYN PT DID NOT ATTEND OR PARTICIPATE BUT REMAINED IN HALLWAY IN FRONT OF NURSES STATION. PT UNABLE TO PARTICIPATE AT THIS TIME DUE TO LEVELS OF CONFUSION. PT WILL CONTINUE TO BEENCOURAGED TO ATTEND AND PARTICIPATE TO BEST OF PT ABILITY IN FUTURE GROUP SESSIONS.
--- NOTE | 2018-10-08 17:06 | NUR ---
Shift chart check completed.
[2018-10-08 20:00] VITALS: BP 112/72
--- NOTE | 2018-10-08 20:56 | NUR ---
Patient is alert to person only. Confused with ST/LT memory deficits noted. Mood pleasant. No hallucinations or delusions noted. Denies SI/HI or pain at this time. Patient up in gerichair in the hallway with staff, interacting and joking. Medication compliant with education on each med. Ate 100% HS snack. Reorientation when confusion noted provided frequently. Gait unsteady, utilized gerichair, and assistance needed when ambulating/transfering. Falling star program in place. Q15 minute checks maintained for safety.
--- NOTE | 2018-10-08 21:16 | NUR ---
Two assist patient to the restroom. Patient began to get agitated and verbally aggressive. Patient grabbing onto staffs arms real tight. Assisted patient to his bed and he got aggressive. Patient started getting real agitated and confused. Assisted patient back into gerichair and reclined back. Put in the quiet room with lights low. Patient sitting in chair at this time yelling out for "Anaya". Will continue to monitor patient for further agitation.
--- NOTE | 2018-10-08 22:11 | NUR ---
Patient calmed down with low stimuli environment that was provided. Patient resting at this time. Will continue to monitor for any further agitation.
--- NOTE | 2018-10-09 01:11 | NUR ---
24 HR chart check completed.
--- NOTE | 2018-10-09 06:51 | NUR ---
ON Q15 MINUTE CHECKS PATIENT SLEPT 6 HOURS OF UNINTERRUPTED SLEEP. RESPIRATIONS EVEN AND UNLABORED ON ROOM AIR. NO MORE AGITATED BEHAVIOR NOTED.
[2018-10-09 07:54] VITALS: BP 130/66
--- NOTE | 2018-10-09 08:00 | NUR ---
Treatment Plan meeting with Dr. Rodríguez, RN, AT, SW and Food And Beverage Operations Manager. Plan for discharge next week. Pt. is accepted at [facility]. PASRR has returned Ruled out from Further review. Clinical Updates faxed to [facility]. Spoke with Lynn in Admissions and notified of plans to discharge next week.
--- NOTE | 2018-10-09 11:20 | NUR ---
DR. BARRAZA ON UNIT TO ASSESS PATIENT.
--- NOTE | 2018-10-09 12:11 | NUR ---
AM GROUP/MUSIC/GAMES PT ATTENDED AND PARTICIPATED THROUGH OBSERVATION AND LOOKING THROUGH [employer]. PT PLEASANTLY CONFUSED WITH NO AGITATION OR AGGRESSION EXPRESSED. PT WILL CONTINUE TO ATTEND AND PARTICIPATE IN FUTURE GROUP SESSIONS TO BEST OF ABILITY.
--- NOTE | 2018-10-09 15:55 | NUR ---
PATIENT IS ALERT TO PERSON WITH CONFUSION; LONG/SHORT TERM MEMORY DEFICITS. MOOD IS STABLE, NO OUTBURST OR AGGRESSION. NO RESPONSE TO INTERNAL STIMULI. NO VOICED STATEMENTS OF HI/SI OR PAIN. DURING INTERVIEW PATIENT NOT ABLE TO COMPREHEND WHAT IS BEING ASKED. STATES "YES" TO EVERYTHINK. MEDICATION COMPLAINT. Q 15 MINUTE SAFETY CHECKS MAINTIANED. 2 PERSON ASSIST WITH ACTIVITIES OF DAILY LIVING, INCONTINENT OF BOWEL AND BLADDER. SET UP FOR MEALS, INTAKES GOOD WITH ADEQUATE FLUIDS. CONTINUE TO MONITOR FOR AGGRESSION, PROVIDE ONE ON ONE AND REDIRECTION NEEDED.
[2018-10-09 20:00] VITALS: BP 116/60
--- NOTE | 2018-10-09 21:05 | NUR ---
24 HR chart check completed.
--- NOTE | 2018-10-09 22:47 | NUR ---
P-CONFUSION I-PROVIDE VERBAL INTERVENTION FOR EMOTIONAL SUPPORT, ASSESS ORIENTATION, ADMINISTER HS MEDICATIONS, MONITOR SLEEP R-MOOD IS STABLE. PLEASANTLY CONFUSED. ALERT TO PERSON ONLY. SHORT & BULL LADLE TENDER MEMORY DEFICITS. NO AGGRESSIVE BEHAVIORS. HAS REMAINED CALM & PREOCCUPIED IN HIS OWN THOUGHTS. ATE HS SNACK. COMPLIANT TAKING HS MEDICATIONS WHOLE. NO DELUSIONAL STATEMENTS. NO SIGNS/SYMPTOMS OF SENSORY DISTURBANCE NOTED. REQUIRES 2 ASSISTS FOR TRANSFERS. CONTINENT OF URINE WHEN TOILETED. P-CONTINUE TO MONITOR & PROVIDE PHYSICAL ASSISTQANCE & EMOTIONAL SUPPORT NEEDED. P
--- NOTE | 2018-10-09 23:50 | NUR ---
PT ASSISTED TO THE BATHROOM BY 2 STAFF. CONTINENT OF SMALL BM & CONTINENT & INCONTINENT OF URINE.
--- NOTE | 2018-10-10 05:41 | NUR ---
PT HAS REMAINED SLEEPING PAST MIDNIGHT SINCE RETURNING TO BED AFTER USING THE BATHROOM
--- NOTE | 2018-10-10 06:48 | NUR ---
AM BEDSIDE GLUCOSE 153
[2018-10-10 07:37] VITALS: BP 121/65
--- NOTE | 2018-10-10 08:00 | NUR ---
Treatment Plan meeting with Dr. Rodríguez, RN, SW and Passenger Coach Driver. Plan for patient to discharge early next week. Pt. has been accepted at [facility] but will require Precert prior to discharge to facility.
--- NOTE | 2018-10-10 10:12 | NUR ---
PT COMBATIVE WITH STAFF, SLIDING OUT OF GERICHAIR, ATTEMPTING TO HIT AND BITE STAFF.PT TOILETED, PROVIDED EMOTIONAL SUPPORT AND 1:1 FOR PT TO VOICE FELINGS. ALL INTERVENTIONS INEFFECTIVE. PT RECEIVED IM GEODON PER PRN ORDERS. MESSAGE LEFT FOR PT POA TO RETURN CALL FOR UPDATE, NURSING QUALITATIVE EXECUTIVE RESEARCHER ALSO UPDATED. PT BEHAVIORS CAUSED HIM TO OBTAIN A SKIN TEAR TO RIGHT ELBOW. PT COMBATIVE WITH STAFF, UNABLE TO MEASURE OR OBTAIN PHOTOS DUE TO PT BEHAVIORS.
--- NOTE | 2018-10-10 10:57 | NUR ---
DAUGHTER PAULA RETURNED CALL AND UPDATED ABOUT RIGHT ELBOW SKIN TEAR
--- NOTE | 2018-10-10 11:00 | NUR ---
P-CONFUSION, AGGRESSION. PATIENT WITH SHORT TERM AND ELIGIBILITY AND OCCUPANCY INTERVIEWER MEMORY DEFICITS. PATIENT WITH NO RESPIRATORY DISTRESS. PATIENT AGGRESSIVE INTERMITTENTLY THIS MORNING. PATIENT STRIKING OUT, RESISTING CARE, USING VULAGR LANGUAGE. I-REDIRECTION WITH 1:1 THERAPEUTIC INTERVENTIONS AND PRESENT REALITY. EDUCATE AND ENCOURAGE MEDICATION COMPLIANCE R-PATIENT MEDICATION COMPLIANT DURING AM MED PASS. PATIENT RECEIVED GEODON 10MG IM IN RIGHT DELTOID. MEDICATION AT THIS TIME WITH EFFECTIVE RESULTS. PATIENT REQUESTING TO LAY DOWN IN THE BED AT THIS TIME. PATIENT PROVIDED NOURISHMENT, FLUIDS, AND TOILETING THROUGHOUT SHIFT. PATIENT AT THIS TIME STILL REFUSING TO LET NURSING PHOTOGRAPH AND MEASURE SKIN TEAR TO RIGHT ELBOW P-CONTINUE TO ENCOURAGE MEDICATION COMPLIANCE, CONTINUE TO PRESENT REALITY, ENCOURAGE GROUP THERAPY WHILE AWAKE
--- NOTE | 2018-10-10 11:51 | NUR ---
Call Placed to Patient Daughter who is Power Of Forest Fire Prevention Manager and Primary Decision Maker. Explained process of Revloc Slip and 72 hour hold expiring and need for her to Voluntarily Sign [facility] for continued treatment and stabalization. Daughter receptive and stated understanding with no voiced questions or concerns voiced. Consent signed and wittnessed by Bid Writer Jennifer and Placed on Patient Chart and Updated on Communication Board.
--- NOTE | 2018-10-10 12:29 | NUR ---
ON UNIT TO ASSESS PT, UPDATE PROVIDED AND ADVISED OF NEW SKIN TEAR TO RIGHT ELBOW AND ORDERS NEEDED.
--- NOTE | 2018-10-10 13:48 | NUR ---
Shift chart check completed.
--- NOTE | 2018-10-10 22:06 | NUR ---
24 HR chart check completed.
--- NOTE | 2018-10-10 22:27 | NUR ---
PT HAS BEEN SLEEPING SINCE THE ONSET OF THE SHIFT DIRECTLY ACROSS FROM THE NURSES STATION IN THE QUIET ROOM FOR CLOSE OBSERVATION FOR SAFETY. REFUSED VITAL SIGNS. HS MEDICATIONS HELD AT THIS TIME DUE TO PT SLEEPING. RESPIRATIONS QUIET & EASY. WILL CONTINUE TO MONITOR.
--- NOTE | 2018-10-11 00:37 | NUR ---
PT AWAKE AT THIS TIME. WAS INCONTINENT OF BM & URINE. REQUIRED 2 STAFF ASSISTS TO PROVIDE ASSISTANCE WITH HYGIENE. GIVEN HS MEDICATIONS AT THIS TIME. IRRITABLE & SARCASTIC WITH CURSING. GRANDIOSE DELUSIONS VOICED. UNRECEPTIVE TO PRESENTATION OF REALITY. ALERT & ORIENTED TO PERSON ONLY.
--- NOTE | 2018-10-11 00:52 | NUR ---
PT SITTING IN A DOLLY CHAIR IN THE HALLWAY WITH STAFF. CONTINUED TO BE IRRITABLE, SARCASTIC & CURSING AT STAFF. THREW HIS BLANKET & PILLOW ON THE FLOOR & DEMANDED THAT STAFF "PICK IT UP & MOVE YOUR ASS". 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 STATED TO STAFF THAT HE WAS GOING TO GO GET HIS "CLUB SO I CAN BEAT THE HELL OUT OF YOU". UNRECEPTIVE TO REALITY OR REDIRECTION. MEDICATED WITH ATIVAN 1 MG IM @ 0044.
--- NOTE | 2018-10-11 05:46 | NUR ---
ATIVAN WAS EFFECTIVE & PT CALMED DOWN & HAS BEEN SLEEPING QUIETLY PAST 0130.
--- NOTE | 2018-10-11 07:04 | NUR ---
XAVIER KAHN [id number] Please refer to the physician's history and physical for past medical history, comorbid conditions, and allergies. Diagnosis: BRIEF PSYCHOTIC DISORDER Sotero Score: 18,AT RISK WOUND DESCRIPTIONS: (new skin impairment) Wound Number: 2 Location of the wound: right elbow Type of wound: skin tear Thickness: Partial Size: 1.5cm x 1.3cm x 0.1cm Tunneling: none Undermining: none Sinus Tract: none Presence of Exudate: Serosanguineous Amount: Light Color: Red Odor: None Periwound Skin Appearance: Normal Wound edges: approximated Pain (associated with wound): none at time of assessment How does patient state this happened? pt unable to state how this happened Surface the patient is resting on: Proform SKIN PREVENTION RECOMMENDATION: 1. Pressure redistribution support surface as appropriate 2. Elevate heels 3. Remove boots/TEDS every shift and reapply 4. Head of bed 30 degrees as tolerated 5. Assess nutrition and hydration 6. Manage moisture 7. Avoid the use of containment devices while in bed 8. Use absorptive products on surfaces limit layers of linens on bed 9. Turn and reposition every 1-2 hours in bed and every 1 hour in chair as tolerated 10. Weight shifts every 15 minutes while up in chair 11. Offloading with pillows or device to keep heels elevated off bed 12. Monitor skin at least every shift 13. Inspect under medical devices twice a day WOUND TREATMENT RECOMMENDATIONS: Continue skin tear guidelines to right elbow.
[2018-10-11 07:31] VITALS: BP 126/58
--- NOTE | 2018-10-11 10:33 | NUR ---
Treatment Plan meeting with Dr. Rodríguez, RN, SW and Foundry Melt Supervisor. Plan for discharge Early next week. Pt. is accepted at [facility] and will discharge to [facility] When Stable.
--- NOTE | 2018-10-11 11:56 | NUR ---
DR. BARRAZA ON UNIT TO ASSESS PATIENT.
--- NOTE | 2018-10-11 14:03 | NUR ---
Family meeting held with pt's dtr Anaya Patel and pt. Discussed pt's history and events which brought pt to [facility]. Anaya was tearful as she shared pt's information. Empathized and provided support to Anaya. Reviewed pt's current medications. Discussed discharge plan of pt discharging to [facility].
--- NOTE | 2018-10-11 16:43 | NUR ---
PATIENT BECOMING EXTREMELY RESTLESS, STRIPING OFF CLOTHES, RAISING VOICE; ASSISTED PATIENT WITH PUTTING CLOTHES BACK ON. PATIENT CURSING AND THREATENING NURSE, GRABBED NURSE'S ARM WITH BOTH HAND. ONE ON ONE, REDIRECTION, OFFERED DRINK; REFUSED. PRN GEODON 10MG IM GIVEN IN LEFT DELTOID. TOLERATED WELL. CONTINUE TO MONITOR FOR AGGRESSION AND DISROBING.
--- NOTE | 2018-10-11 17:43 | NUR ---
PATIENT LESS RESTLESS, CONTINUE TO TAKE CLOTHES OFF, ASSISTED IN QUIET ROOM DUE TO DISROBING. PLAYED WITH FOOD DURING DINNER. NO FURTHER AGGRESSION NOTED. PRN GEODON EFFECTIVE.
[2018-10-11 20:07] VITALS: BP 119/59
--- NOTE | 2018-10-11 22:20 | NUR ---
Patient alert with confusion. ST/LT memory deficits noted. No SI/HI noted. No hallucinations/delusions noted at this time. Patient compliant with medications without any difficulty. Patient is calm but has tearful periods. Provided 1:1 with patient for emotional support. Redirected/reoriented when appropriate. Plan to encourage medication compliance and continue to provide 1:1 for emotional support. Continue to redirect/reorient when needed and appropriate. Q 15 minute safety checks continued and maintained. See [facility] flowsheet for further documentation.
--- NOTE | 2018-10-12 05:04 | NUR ---
Patient slept approx. 3 hours throughout shift. Q 15 minute safety checks continued and maintained.
[2018-10-12 08:17] VITALS: BP 119/70
--- NOTE | 2018-10-12 09:34 | NUR ---
ON UNIT TO ASSESS PT, UPDATE PROVIDED.
--- NOTE | 2018-10-12 10:52 | NUR ---
P: PT HAVING PARANOID DELUSIONS CONTINUOUSLY STATING TO 2ND RN "THEY ARE COMING TO GET YOU FOR KILLING THAT ROSAURA" I: PT ALERT TO PERSON ONLY, SHORT TERM MEMORY DEFICTS AND CONFUSION NOTED PER PT BASELINE. PRESENTED REALITY, PROVIDED EMOTIONAL SUPPORT AND 1:1 FOR PT TO VOICE FEELINGS, ENCOURAGED MED COMPLIANCE R: PT CONTINUES TO HAVE PARANOID DELUSIONS, UNRECEPTIVE TO PRESENTATION OF REALITY. PT MED COMPLIANT WITH MINIMAL DIFFICULTY P: MONITOR PT BEHAVIORS ON Q15 MIN SAFETY CHECKS, ENCOURAGE MED COMPLIANCE, CONTINUE TO RE-ORIENT AND PRESENT REALITY NEEDED PT UP TO GERICHAIR D/T UNSTEADY GAIT, INABILITY TO AMBULATE INDEPENDENTLY AND LACK OF SAFETY AWARENESS. PT INCONTINENT OF BOWEL AND BLADDER, CARE PROVIDED NEEDED. NO SUICIDAL THOUGHTS OR BEHAVIORS NOTED.
--- NOTE | 2018-10-12 12:00 | NUR ---
Treatment Plan meeting with Dr. Rodríguez, RN, SW and Coke Loader. Plan for discharge Next week. Pt. is accepted at [facility]. Clinical Updates sent to [facility].
--- NOTE | 2018-10-12 12:53 | NUR ---
SPEECH THERAPY Orders received and patient seen for bedside swallowing evaluation due to concerns for pocketing of foods during meals. Patient is on BHU with frequent confusion and diagnosis of Alzheimer's Dementia. Patient was pleasantly confused throughout duration of evaluation. Patient able to follow simple verbal commands with models and cues and he was not oriented to time, location, or self. Patient is edentulous, with remaining oral [facility] exam revealing lingual, labial, and buccal skills wfl. Patient assessed with thin liquids via straw, honey-thick liquids via cup, and pureed and regular solids. Patient taking sip of thin liquids during beginning of evaluation with no overt s/s/ of penetration or aspiration observed. Patient given bites of pudding, and required cues and prompts to initiate swallow. Patient with mild pocketing of the bolus, with continued cues to initiate swallow. Patient able to clear oral cavity, howeverer pharyngeal swallow was not triggered, with patient requiring an additiona bite to help trigger a pharyngeal swallow. Patient additionally assessed with small bite of suzan cracker. Patient not able to effectively masticate regular diet consistency, and required max cuing to consume 1, small bite. Additional trials of pudding and thin liquids were trialed, with increased pharyngeal delay, with eventual reflexive coughing. Patient trialed with honey-thick liquids, resulting in delay of pharyngeal trigger, requiring clinicain cues and prompts. Patient presents with oropharyngeal dysphagia, characterized by reduced abilities to masticate and form and propel a bolus. He additionally demonstrates delay in initiation of pharyngeal swallow, which puts him at risk for aspiration. It is recommended patient undergo a modified barium swallow study to further assess the anatomy and physiology of the oropharyngeal swallow mechanism. Patient recommended pureed diet with honey-thick liquids prior, pending the results of MBS. Results and recommendations were shared with patient's nurse who verbalized understanding. Thank you for your consultation. Please contact Speech Therapy with any questions regarding this patient. Aimee Rivas MA CF-DIGITAL ASSOCIATE
--- NOTE | 2018-10-12 13:24 | NUR ---
MBS preliminary note Patient seated in wheel chair and viewed in lateral plane for MBS. Study done in conjunction with Dr. Campbell. Patient was pleasant and followed simple commands with assist but able to give homself drinks from a cup for procedure. Thin liquids via cup approximately 3 bolus amounts judged normal with one isolated and 2 sequential. patient edentulous. A natural slight kyphotic position noted resulting in slight chin tuck during MBS in wheelchair upright not exactly 90 degrees due ot forward posture of patient.Applesaude via teqaspoon times two mixed wiht barium administered a full teaspoon each time.Immediate prior to MBS procedure in fluor room a staff member that accompanied patient reported removing chunks of chicken from his oral cavity that he just consumed for lunch and reported patient not aware of chunks. Oral phase moderate slow oral prep and transfer of thin liquid bolus with reduced tongue tp palate contact with mild delay from faucial arches to pharyngeal phase with liquid spilling into valleculae. Oral residue mild with liquids. Puree with moderate slow oral prep moderate reduced bolus cohesion with reduced tongue to palate contact and average 5.5 second pharygneal delay from faucial arches to valleculae where the bolus slowly spilled over the tongue base and then the swallowed was triggered approximately 2.5-3.0 seconds form valleculae. Mild residue oral and in pharynx but not of concern. Pharyngeal phase characterized by penetration moderate in depth but cleared with thin liquids especially with sequential sips of liquids but no aspiration noted. No cough or throat clear in response to laryngeal penetration. Recommendations and impressions include supervision with meals and recommend puree diet with single small sips of liquids from a cup with positioning patient upright and not reclined at meals. Position patient upright wiht feet on floor and cue a chin tuck posture if he is cooperative by encouraging a bent straw or cup low and forward including nosy cup to avoid his tipping cup and head backwards or extension. Alterante foods and liquids and check oral cavity to clear pocketing food post meal. Alternate warm/ cold foods to increase oral sensation awareness nd trigger sensory and flavor foods as allowed per diet to heighten sensory awareness. Speech to follow patient to assess train care givers. Carmen Guerrier MA CCC-ADVERTISING MANAGER
[2018-10-12 20:00] VITALS: BP 109/68
--- NOTE | 2018-10-13 06:55 | NUR ---
PT SLEPT APPROXIMATELY 7 HOURS THIS SHIFT. Q15 MINUTE SAFETY CHECKS MAINTAINED.
[2018-10-13 07:44] VITALS: BP 112/65
--- NOTE | 2018-10-13 08:15 | NUR ---
PT RESTING QUIETLY RECLINED IN CHAIR WITH EYES CLOSED, EASILY AROUSABLE VIA VERBAL/TACTILE STIMULI. PLEASANT. PT CONTINUES TO POCKET FOOD, KEE BLANKENSHIP CAPACITY ANALYST UPDATED, MEDICATIONS REVIEWED. NNO RECIEVED AT THIS TIME. KEE TO REVIEW FURTHER.
--- NOTE | 2018-10-13 10:00 | NUR ---
ON UNIT TO SEE PT AT THIS TIME.
--- NOTE | 2018-10-13 11:31 | NUR ---
AM GROUP/LEISURE SKILLS PT ATTENDED BUT CHOSE NOT TO PARTICIPATE. PT OBSERVED GROUP WITH NO AGITATION OR CONFUSION EXPRESSED. PT WILL CONTINUE TO ATTEND GROUP AND BE ENCOURAGED TO PARTICIPATE.
--- NOTE | 2018-10-13 15:11 | NUR ---
P- CONFUSION. ST/LT MEMORY IMPAIRMENTS. RESTLESSNESS. I- ORIENTATION, MOOD AND BEHAVIOR ASSESSED. ASSESSED PT FOR SI/HI, INTENT OR PLAN. ASSESSED PT FOR S/S HALLUCINATIONS, PARANOIA AND/OR DELUSIONS. MEDICATIONS ADMINISTERED PER PHYSICIAN'S ORDERS. ASSISTANCE WITH ADL CARE PROVIDED NEEDED. ENCOURAGED PT TO ATTEND AND PARTICIPATE IN RAYMOND MILIEU GROUPS AND ACTIVITIES. R- PT IS ALERT AND ORIENTED TO PERSON ONLY, CONFUSED IN ALL OTHER AREAS. ST/LT MEMORY GAPS NOTED. RESPS EASY AND EVEN ON ROOM AIR. MOOD APPEARS STABLE, AFFECT APPROPRIATE. PT BECOMES INCREASINGLY RESTLESS AT TIMES, PT SEATED IN GERICHAIR D/T UNSTEADY GAIT AND POOR SAFETY AWARENESS. PT REQUESTING SEVERAL DIFFERENT TYPES OF TOOLS TO BE ABLE TO GET "OUT OF THE CAR". FREQUENTLY AMBULATING IN HALLWAYS WITH STAFF ASSIST FOR SAFETY. MEDICATION COMPLIANT WITHOUT DIFFICULTY. PT DENIES SI/HI, INTENT OR PLAN. PT DENIES HALLUCINATIONS, NO RESPONSE TO INTERNAL STIMULI NOTED. NO PARANOIA/DELUSIONS NOTED. NO DISTRESS NOTED. P- PLAN TO CONTINUE CURRENT TREATMENT; CONTINUE TO MONITOR MOOD AND BEHAVIORS, PROVIDE APPROPRIATE REORIENTATION, REDIRECTION AND 1:1 NEEDED. CONTINUE TO ENCOURAGE MEDICATION COMPLIANCE WELL GROUP ATTENDANCE AND PARTICIPATION.
--- NOTE | 2018-10-13 15:36 | NUR ---
PT CONTINUES WITH INCREASED RESTLESSNESS THIS AFTERNOON, PT STATES "CALL THE POLICE, I'M GOING TO LOSE MY JOB!" ATTEMPTS TO REORIENT PT UNSUCCESSFUL. PT AMBULATING IN HALLWAYS WITH STAFF IN ATTEMPTS TO DECREASE RESTLESSNESS WITHOUT POSITIVE EFFECT. PT REMAINS 1:1 WITH STAFF AMBULATING AT THIS TIME. Q15 MIN MONITORING CONTINUES.
--- NOTE | 2018-10-13 16:01 | NUR ---
PM GROUP/ART/MOVIE PT REMAINED IN HALLWAY WITH MENTAL HEALTH WORKER WHO WALKED PT AT THIS TIME. DUE TO PT LEVELS OF COGNITION PT UNABLE TO PARTICIPATE AT THIS TIME. PT WILL CONTNINUE TO BE ENCOURAGED TO ATTEND IN FUTURE GROUP SESSIONS.
--- NOTE | 2018-10-13 18:21 | NUR ---
SHIFT CHART CHECK COMPLETED.
[2018-10-13 20:00] VITALS: BP 109/66
--- NOTE | 2018-10-14 05:26 | NUR ---
PT COMBATIVE WITH HOC WHILE TOILETING. ALERT TO SELF WITH CONFUSION NOTED. MEDICATION COMPLIANT WITHOUT DIFFICULTY. NO HALLUCINATIONS OR DELUSIONS NOTED. NO SI/HI NOTED. PT CALMED ONCE HOC COMPLETED. Q15 MINUTE SAFETY CHECKS MAINTAINED. SEE [facility] FLOWSHEET FOR SPECIFIC MONITORING.
--- NOTE | 2018-10-14 05:56 | NUR ---
PT SLEPT APPROXIMATELY 6 HOURS THIS SHIFT. Q15 MINUTE SAFETY CHECKS MAINTAINED.
[2018-10-14 07:59] VITALS: BP 112/69
--- NOTE | 2018-10-14 08:43 | NUR ---
PT AWAKE, ALERT, SITTING UPRIGHT IN GERICHAIR, VERBAL, RESPS EASY AND EVEN ON ROOM AIR. NO DISTRESS NOTED. KEE BLANKENSHIP SALES PRODUCER ON UNIT TO SEE PT AT THIS TIME, UPDATE GIVEN.
--- NOTE | 2018-10-14 11:19 | NUR ---
AND ON UNIT TO SEE PT AT THIS TIME.
--- NOTE | 2018-10-14 18:15 | NUR ---
SHIFT CHART CHECK COMPLETED.
--- NOTE | 2018-10-14 18:19 | NUR ---
P- CONFUSION. ST/LT MEMORY IMPAIRMENTS. PLEASANT AND COOPERATIVE. I- ORIENTATION, MOOD AND BEHAVIOR ASSESSED. ASSESSED PT FOR SI/HI, INTENT OR PLAN. ASSESSED PT FOR S/S HALLUCINATIONS, PARANOIA AND/OR DELUSIONS. MEDICATIONS ADMINISTERED PER PHYSICIAN'S ORDERS. ASSISTANCE WITH ADL CARE PROVIDED NEEDED. ENCOURAGED PT TO ATTEND AND PARTICIPATE IN RAYMOND MILIEU GROUPS AND ACTIVITIES. R- PT IS ALERT AND ORIENTED TO PERSON ONLY, CONFUSED IN ALL OTHER AREAS. ST/LT MEMORY GAPS NOTED. RESPS EASY AND EVEN ON ROOM AIR. MOOD APPEARS STABLE, AFFECT APPROPRIATE. PT SLIGHTLY RESTLESS AT TIMES T/O SHIFT, MORE EASILY REDIRECTED THIS DATE THAN PREVIOUS ASSESSMENT BY THIS RN ON 10/13/18. PUZZLES PROVIDED FOR PT TO WORK ON PER THE SUGGESTION OF PT'S DAUGTHER, INTERVENTION EFFECTIVE IN HELPING TO CALM RESTLESSNESS. PT IS MEDICATION COMPLIANT WITHOUT DIFFICULTY. PT DENIES SI/HI, INTENT OR PLAN. PT DENIES HALLUCINATIONS, NO RESPONSE TO INTERNAL STIMULI NOTED. NO PARANOIA/DELUSIONS NOTED. NO DISTRESS NOTED. NO AGGRESSIVE BEHAVIORS THIS SHIFT. P- PLAN TO CONTINUE CURRENT TREATMENT; CONTINUE TO MONITOR MOOD AND BEHAVIORS, PROVIDE APPROPRIATE REORIENTATION, REDIRECTION AND 1:1 NEEDED. CONTINUE TO ENCOURAGE MEDICATION COMPLIANCE WELL GROUP ATTENDANCE AND PARTICIPATION.
[2018-10-14 20:00] VITALS: BP 124/75
--- NOTE | 2018-10-14 21:20 | NUR ---
24 HR chart check completed.
--- NOTE | 2018-10-14 23:28 | NUR ---
P-CONFUSION I-PROVIDE VERBAL INTERVENTION FOR EMOTIONAL SUPPORT, ASSESS ORIENTATION, ADMINISTER HS MEDICATIONS, MONITOR SLEEP R-MOOD IS STABLE. PLEASANTLY CONFUSED. ALERT TO PERSON ONLY. SHORT & TIME BUYER MEMORY DEFICITS. NO AGGRESSIVE BEHAVIORS TOWARDS STAFF. HAS REMAINED CALM & PREOCCUPIED IN HIS OWN THOUGHTS. ATE HS SNACK. COMPLIANT TAKING HS MEDICATIONS WHOLE & WHEN HE WAS DONE HE TOOK THE CUP & THREW THE REMAINING WATER ON THE WALL IN THE DINING ROOM . PT HAS BEEN SINGING & CLAPPING HIS HANDS TALKING TO HIMSELF. REQUIRES 2 ASSISTS FOR TRANSFERS. INCONTINENT OF URINE & INCONTINENT OF 2 BOWEL MOVEMENTS. P-CONTINUE TO MONITOR & PROVIDE PHYSICAL ASSISTQANCE & EMOTIONAL SUPPORT NEEDED.
--- NOTE | 2018-10-15 03:24 | NUR ---
PT HAS SLEPT PAST 2244. AWAKE AT THIS TIME & INCONTINENT OF BM.
[2018-10-15 07:54] VITALS: BP 121/69
--- NOTE | 2018-10-15 08:09 | NUR ---
SPOKE WITH DR. LINTON AT [phone] RE: CONSULT NEEDED
--- NOTE | 2018-10-15 10:02 | NUR ---
Treatment team meeting held with Dr Rodríguez, RN, CLERICAL COORDINATOR-S, and Commodity Manager. Tentative discharge will be mid week to [facility].
--- NOTE | 2018-10-15 11:56 | NUR ---
AM GROUP/SOCIALIZATION PT WAS PRESENT FOR GROUP SLEEPING RECLINED IN A CHAIR. PT IS UNABLE TO PARTICIPATE AT THIS TIME DUE TO COGNITIVE IMPAIRMENT.
--- NOTE | 2018-10-15 12:20 | NUR ---
Discharge/speech daily note Patient seen for individual session this date. Benito eating independently in Lacy chair 90 degreee angle wiht feet on floor. Straw encouraged which resulted in slight chin tuck forward and no overt s/s aspiraiton wiht liquids via straw. Puree foods with self feeding three quarters eaten with no oral residue and no overt s/s aspiration. Oral phase timely as well as pharygneal trigger of swallow via bedside assessment which is limited for pharygneal phase.Patient is consuming at least three quarters meal and not demonstrating concern for oral or phayrngeal phase and discahrge at this time.Patient has met his maximum potential at this time. Carmen Guerrier MA CCC-NEEDLE CONTROL CHENILLER
--- NOTE | 2018-10-15 14:42 | NUR ---
Faxed pt update to [facility].
--- NOTE | 2018-10-15 15:42 | NUR ---
NO ADVERSE MOODS OR BEHAVIORS NOTED AT THIS TIME. PT ALERT TO PERSON ONLY, CONFUSION AND SHORT TERM MEMORY DEFICITS NOTED, PER PT BASELINE. PT RESTLESS AT TIMES. NO HALLUCINATIONS OR DELUSIONS NOTED. NO SUICIDAL BEHAVIORS NOTED. PT UP TO GERICHAIR D/T INABILITY TO AMBULATE INDEPENDENTLY. PT INCONTINENT OF BOWEL AND BLADDER, CARE PROVIDED NEEDED. PLAN IS TO MONITOR PT BEHAVIORS ON Q15 MIN SAFETY CHECKS, ENCOURAGE MED COMPLIANCE, PROVIDE LOW STIMULATION ENVIRONMENT FOR PT TO CALM, PROVIDE EMOTIONAL SUPPORT AND 1:1 FOR PT TO VOICE FEELINGS.
--- NOTE | 2018-10-15 16:00 | NUR ---
PM GROUP/LEISURE INTERESTS PT ATTENDED GROUP AND PARTICIPATED BY LISTENING TO MUSIC AND SOCIALIZING. PT EXPRESSED NO AGITATION DURING GROUP
--- NOTE | 2018-10-15 16:06 | NUR ---
ON UNIT TO ASSESS PT, UPDATE PROVIDED.
[2018-10-15 20:00] VITALS: BP 103/82
--- NOTE | 2018-10-16 00:43 | NUR ---
24 HR chart check completed.
--- NOTE | 2018-10-16 01:11 | NUR ---
P-CONFUSION I-PROVIDE VERBAL INTERVENTION FOR EMOTIONAL SUPPORT, ASSESS ORIENTATION, ADMINISTER HS MEDICATIONS, MONITOR SLEEP R-MOOD IS STABLE. PLEASANTLY CONFUSED. ALERT TO PERSON ONLY. SHORT & SECURITIES ANALYST MEMORY DEFICITS. NO AGGRESSIVE BEHAVIORS TOWARDS STAFF. HAS REMAINED CALM & PREOCCUPIED IN HIS OWN THOUGHTS. ATE HS SNACK. COMPLIANT TAKING HS MEDICATIONS WHOLE. REQUIRES 2 ASSISTS FOR TRANSFERS WHILE WALKING TO THE BATHROOM. CONTINENT OF URINE THUS FAR. P-CONTINUE TO MONITOR & PROVIDE PHYSICAL ASSISTQANCE & EMOTIONAL SUPPORT NEEDED.
--- NOTE | 2018-10-16 06:14 | NUR ---
PT HAS ONLY SLEPT APPROX 4-5 HOURS. HAS BEEN ASSISTED TO BATHROOM X2 WITH 2 STAFF. UPON AWAKENING, PT STATED THAT HE HAD TO GET TO WORK REPEATEDLY & KEPT YELLING FOR PAULA. PT SAT IN DOLLY CHAIR & RETURNED TO SLEEP @ APPROX 0330. PRESENTLY AWAKE.
[2018-10-16 07:36] VITALS: BP 117/65
--- NOTE | 2018-10-16 10:32 | NUR ---
Treatment team meeting held with Dr Rodríguez, RN, NET SQL DEVELOPER-S, and Paint Line Production Supervisor. Tenative discharge scheduled for 10/18/18 to [facility].
--- NOTE | 2018-10-16 11:26 | NUR ---
DR. HERRON ON FLOOR TO ASSESS PATIENT.
--- NOTE | 2018-10-16 11:37 | NUR ---
AM GROUP/COPING SKILLS PT WAS PRESENT FOR MORNING GROUP THERAPY RECLINED IN A CHAIR SLEEPING. PT WAS NOTED TO BE SNORING LOUDLY AND DID NOT AWAKEN DURING GROUP
--- NOTE | 2018-10-16 13:01 | NUR ---
Shift chart check completed.
--- NOTE | 2018-10-16 13:51 | NUR ---
P: IRRITABLE AND RESTLESS AT TIMES. ALERT TO PERSON ONLY, CONFUSION NOTED. ST/LT MEMORY DEFICITS NOTED. I: 1:1 INTERACTION WITH EMOTIONAL SUPPORT PROVIDED. PROVIDE MEDICATIONS ON TIME WITH EDUCATION ON EACH MED. REORIENT WHEN CONFUSION IS NOTED. PROVIDE LOW STIMULI, LOW LIGHTING ENVIRONMENT. OFFER DIVERSIONAL ACTIVITIES AND COPING TECHNIQUES. ENCOURAGE TO PARTICIPATE/ATTEND GROUP THERAPIES FOR EMOTIONAL SUPPORT AND SOCIALIZATION. ASSESS FOR HALLUCINATIONS, DELUSIONS, SI/HI, OR PAIN. TWO ASSIST DUE TO UNSTEADY GAIT, ASSIST WITH ADLS AND TRANSFERING FREQUENTLY. R: REORIENTATION INEFFECTIVE, PATIENT REMAINS BASELINE CONFUSION. PATIENT EATING AND DRINKING ADEQUATELY. WHEN PATIENT IS IRRITABLE AND AGITATION, LOW STIMULI ENVIRONMENT AND LOW LIGHTING EFFECTIVE. TWO ASSIST WITH AMBULATING PATIENT, TAKEN TO THE RESTROOM, AND BACK TO CHAIR; PATIENT CALMS DOWN AFTER ADLS. REFUSES TO ATTEND/PARTICIPATE IN GROUP THERAPIES. NO S/S OF INTERACTING WITH INTERNAL STIMULI. NO DELUSIONAL THOUGHT PROCESS NOTED. DENIES HALLUCINATIONS, DELUSIONS, SI/HI, OR PAIN. MEDICATION COMPLIANT WITH NO DIFFICULTIES. RESPIRATIONS EVEN AND UNLABORED ON ROOM AIR. P: 1:1 INTERACTION WITH EMOTIONAL SUPPORT WHEN NECESSARY. PROVIDE MEDICATIONS ON TIME WITH EDUCATION ON EACH. REORIENT PATIENT FREQUENTLY DUE TO BASELINE CONFUSION. ENCOURAGE TO ATTEND/PARTICIPATE IN GROUP THERAPIES FOR EMOTIONAL SUPPORT WHEN NECESSARY. PROVIDE LOW STIMULI AND LOW LIGHTING ENVIRONMENT, DIVERSIONAL ACTIVITIES, AND COPING MECHANISM WHEN IRRITABLE AND RESTLESS. TWO ASSIST PATIENT WITH ADLS, CARE, AND AMBULATING FREQUENTLY. ASSESS FOR HALLUCINATIONS, DELUSIONS, SI/HI, OR PAIN. FALLING STAR PROGRAM MAINTAINED. Q15 MINUTE CHECKS MAINTAINED FOR SAFETY.
--- NOTE | 2018-10-16 20:23 | NUR ---
24 HR chart check completed.
--- NOTE | 2018-10-16 20:29 | NUR ---
EVENING/STORY/MUSIC/REMINISCE PT CHOSE NOT TO ATTEND GROUP BUT TO REMAIN IN NAIR WITH NURSES. PT WILL CONTINUE TO BE ENCOURAGED TO ATTEND AND PARTICIPATE IN FUTURE GROUP SESSIONS.
--- NOTE | 2018-10-16 23:20 | NUR ---
P-CONFUSION I-PROVIDE VERBAL INTERVENTION FOR EMOTIONAL SUPPORT, ASSESS ORIENTATION, ADMINISTER HS MEDICATIONS, MONITOR SLEEP R-MOOD IS STABLE. PLEASANTLY CONFUSED. ALERT TO PERSON ONLY. SHORT & SURGICAL ASSISTANT CERTIFIED MEMORY DEFICITS. NO AGGRESSIVE BEHAVIORS TOWARDS STAFF. HAS REMAINED CALM & PREOCCUPIED IN HIS OWN THOUGHTS. ATE HS SNACK. COMPLIANT TAKING HS MEDICATIONS WHOLE. REQUIRES 2 ASSISTS FOR TRANSFERS INCONTINENT OF URINE P-CONTINUE TO MONITOR & PROVIDE PHYSICAL ASSISTQANCE & EMOTIONAL SUPPORT NEEDED.
--- NOTE | 2018-10-17 05:50 | NUR ---
PT HAS SLEPT PAST 2300 WITH 1 BRIEF AWAKENING TO GO TO THE BATHROOM WITH 2 STAFF ASSISTS
[2018-10-17 07:57] VITALS: BP 128/69
--- NOTE | 2018-10-17 10:31 | NUR ---
Treatment team meeting held with Dr Rodríguez, RN, BRIDGE INSTRUCTOR-S, and Global Consumer Sector Vice President. Discharge to [facility] is scheduled for tomorrow.
--- NOTE | 2018-10-17 11:37 | NUR ---
DR. HERRON ON FLOOR TO ASSESS PATIENT. UPDATE PROVIDED.
--- NOTE | 2018-10-17 11:38 | NUR ---
P- LABILE. ALERT TO PERSON ONLY, CONFUSED. ST/LT MEMORY DEFICITS NOTED. I- 1:1 INTERACTION WITH EMOTIONAL SUPPORT AND VENTILATION OF FEELINGS PROVIDED. PROVIDE MEDICATIONS ON TIME WITH EDUCATION. PROVIDE DIVERSIONAL ACTIVITIES, ADLS, AND CARE WHEN PATIENT IS IRRITABLE. ONE ASSIST WITH AMBULATING FREQUENTLY. REORIENT WHEN CONFUSION IS NOTED. ENCOURAGE TO ATTEND AND PARTICIPATE IN GROUP THERAPIES FOR EMOTIONAL SUPPORT AND SOCIALIZATION. R- PATIENT WILL BE VERY PLEASANT AND WHEN REAPPROACED PATIENT WILL BE IRRITABLE. PATIENT WILL ATTEND GROUP THERAPY BUT REFUSES TO PARTICIPATE. MEDICATION COMPLIANT WITH NO DIFFICULTIES. AFTER AMBULATING AND CARE, PATIENT CALMS DOWN. REORIENTATION INEFFECTIVE, PATIENT BASELINE CONFUSION, ALERT TO PERSON ONLY. INCONTINENT AND CONTINENT OF BOWEL AND URINE. RESPIRATIONS EVEN AND UNLABORED ON ROOM AIR. EATING AND DRINKING ADEQUATELY. P- REORIENT PATIENT FREQUENTLY WHEN CONFUSION IS NOTED. PROVIDE CARE, ADLS, AMBULATE, AND GIVE DIVERSIONAL ACTIVITIES WHEN PATIENT IS IRRITABLE. ENCOURAGE TO ATTEND AND PARTICIPATE IN GROUP THERAPIES FOR EMOTIONAL SUPPORT AND SOCIALIZATION. PROVIDE MEDICATIONS ON TIME WITH EDUCATION ON EACH MED. 1:1 INTERACTION WITH EMOTIONAL SUPPORT AND VENTILATION OF FEELINGS WHEN NECESSARY. FALLING STAR PROGRAM MAINTAINED. Q15 MINUTE CHECKS MAINTAINED FOR SAFETY.
--- NOTE | 2018-10-17 11:48 | NUR ---
AM GROUP/INTERPERSONAL INTERACTIONS PT WAS PRESENT FOR GROUP AND WOULD OCCASIONALLY MAKE A COMMENT BUT WAS NONSENSICAL. PT IS PLEASANTLY CONFUSED. PT EXHIBITED NO AGITATION DURING GROUP
--- NOTE | 2018-10-17 11:57 | NUR ---
Shift chart check completed.
--- NOTE | 2018-10-17 12:28 | NUR ---
SPEECH THERAPIST ON UNIT, RE-EVALUATION COMPLETED PER SPEECH THERAPIST AT THE REQUEST OF . SPEECH THERAPIST STATES OK TO RETURN DIET TO REGULAR TEXTURE, THIN LIQUIDS.
--- NOTE | 2018-10-17 12:32 | NUR ---
SPEECH PATHOLOGY Clinical swallowing evaluation completed as per orders. Patient had been seen recently and was discharged on pureed diet and thin liquids. Since that time, patient's medications have changed and resulted in improved behavior and cooperation. Patient is also now wearing his upper and lower dentures. Patient is scheduled for discharge tomorrow and physician has requested reconsult to determine if patient can tolerate upgrade in diet due to improved overall status. Patient was given puree, coarse solid and thin liquids by straw. Patient fed himself. He was able to bite and chew without difficulty. Mild residue was observed post swallow however patient was able to clear it independently with liquid wash or when alternating with a smooth consistency. Overall patient displayed safe tolerance for solids and it is recommended he resume a regular diet and thin liquid. Results and jamil. were shared with patient and his nurse and they verbalized understanding. Short term follow up will be conducted to ensure safe tolerance of diet upgrade. Refer to report in [employer] for further information. Thank you for this referral. CONOR MURILLO MSCCC-TECHNICAL COORDINATOR
--- NOTE | 2018-10-17 13:48 | NUR ---
Patient update faxed to Lynn at [facility].
--- NOTE | 2018-10-17 13:49 | NUR ---
Spoke with Lynn [facility] and informed her of pt discharge scheduled for tomorrow. She is starting the insurance precert at this time. Left a voicemail message for pt's dtr Anaya Patel informing her of planned discharge.
--- NOTE | 2018-10-17 15:40 | NUR ---
Occupational Therapy evaluation completed on 3 with full eval to follow. Precautions include fall risk,3n unit precautions, impaired cognition,fluctuates mod/min assist w/ mobility, moderate complexity level 90930 via chart review, testing and evaluation. Recommend OT per POC and SNF to enable possible return home w/ dtr. Thank you for this referral. Charo Taylor OTR/L
--- NOTE | 2018-10-17 15:44 | NUR ---
PM GROUP/LEISURE INTERESTS PT WAS PRESENT FOR GROUP BUT WASN'T INTERESTED IN WATCHING TV AND WAS TALKING LOUDLY SO A NURSE TOOK HIM IN THE NAIR. PT IS PLEASANTLY CONFUSED AND UNABLE TO PARTICIPATE IN GROUP AT THIS TIME DUE TO COGNITIVE IMPAIRMENT
--- NOTE | 2018-10-17 15:52 | NUR ---
Pt is pleasantly confused this afternoon. Pt was sitting in [facility] in [place] and was whistling. Pt spoke to this gag writer about [place]. He then asked if his brother was near.
--- NOTE | 2018-10-17 15:53 | NUR ---
Requested PT/OT evaluations to prepare for discharge insurance authorizations. Spoke to pt's dtr Anaya Patel and provided pt update.
--- NOTE | 2018-10-17 21:31 | NUR ---
P--PEASENT AND INTERACTIVE..CONFUSION I--MEDICATION EDUCATION. EMOTIONAL SUPPORT. UNABLE TO HAVE 1:1 DUE TO COGNITIONS R--HI. STARTS SINGING AMAZING GIOVANA AND CLAPPING P--MONITOR FOR CHANGES IN BEHAVIOR. TRY TO GET HIM TO SLEEP IN HIS BED TONIGHT.
--- NOTE | 2018-10-18 04:16 | NUR ---
24 HR chart check completed.
--- NOTE | 2018-10-18 06:36 | NUR ---
SLEPT WELL PAST 2200PM
--- NOTE | 2018-10-18 07:00 | NUR ---
PHYSICAL THERAPY Patient evaluated on 3, full evaluation to follow. Continue with PT as per plan of care with fall, unit three, alarms, mod (A) and acute debility precautions. Will require SNF. PAtient is high complexity via chart review, tests and evaluation: [id number]. Thank you for this referral. Brittney Richey,PT
--- NOTE | 2018-10-18 07:14 | NUR ---
XAVIER KAHN [id number] Please refer to the physician's history and physical for past medical history, comorbid conditions, and allergies. Diagnosis: BRIEF PSYCHOTIC DISORDER Sotero Score: 18,AT RISK WOUND DESCRIPTIONS:( follow up ) Wound Number: 1 Intact scab noted to right elbow. No redness surrounding area. No drainage noted. Wound Number: 2 Location of the wound: right elbow Type of wound: skin tear Thickness: Partial Size: 0.7cm x 0.4cm x 0.1cm Tunneling: none Undermining: none Sinus Tract: none Presence of Exudate: Serosanguineous Amount: Light Color: Red Odor: None Periwound Skin Appearance: Normal Wound edges: approximated Pain (associated with wound): none at time of assessment Surface the patient is resting on: Proform SKIN PREVENTION RECOMMENDATION: 1. Pressure redistribution support surface as appropriate 2. Elevate heels 3. Remove boots/TEDS every shift and reapply 4. Head of bed 30 degrees as tolerated 5. Assess nutrition and hydration 6. Manage moisture 7. Avoid the use of containment devices while in bed 8. Use absorptive products on surfaces limit layers of linens on bed 9. Turn and reposition every 1-2 hours in bed and every 1 hour in chair as tolerated 10. Weight shifts every 15 minutes while up in chair 11. Offloading with pillows or device to keep heels elevated off bed 12. Monitor skin at least every shift 13. Inspect under medical devices twice a day WOUND TREATMENT RECOMMENDATIONS: Continue skin tear guidelines
--- NOTE | 2018-10-18 07:15 | NUR ---
OT Note Pt was seen this AM 1:1 for 15 minutes of OT session with nursing staff present for observation only. Upon arrival pt was reclined in caroline chair in dining room area. Pt identified by name and and had complaints of back pain but was unable to rate on 0-10 scale. Throughout session pt was very confused. Pt tranfered to room in caroline chair. Sit-stand completed with min A x2. Functional mobility completed into bathroom with min A x2 and ACCESS MANAGER due to unsteady gait. Pt transfered on and off standard commode with min A x2. Self-care task completed at sink side including washing hands while standing with contact guard assist for unsteady standing balance. Pt was unable to perform task due to being needing max verbal and tactile prompts for step by step directions for sequencing due to confusion. Pt completed functional mobility back to dining area in caroline chair with min A x2 and ACCESS MANAGER. Pt was left sitting in caroline chair with tray table in place in dining room area with body alarm on for safety and under BHU supervision. Continue with rec D/C to SNF and then to LTC. [place] GRAF/student VANCE Stiles/Funmilayo
[2018-10-18 07:32] VITALS: BP 110/71
--- NOTE | 2018-10-18 09:30 | NUR ---
SPEECH PATHOLOGY Patient was seen for treatment this am during breakfast meal, to ensure safe tolerance of regular diet. Patient was upgraded from a pureed diet yesterday. Patient was alert, cooperative and confused. He was able to feed himself with occasional assistance as he would become distracted. He consumed a variety of solid consistencies as well as thin liquid. Patient ate slowly and took small bites. He chewed thoroughly and displayed a timely swallow. Very minimal residue was observed occasionally in his oral cavity, which he cleared with liquid wash. He displayed good use of safe swallow precautions during the meal. He tolerates a regular diet and it is recommended that he remain on this consistency. Patient will be discharged from speech services at this time. Thank you for this referral. It has been a pleasure taking part in this patient's care. CONOR MURILLO MSCCC-BRICK KILN BURNER
--- NOTE | 2018-10-18 09:51 | NUR ---
NO ADVERSE MOODS OR BEHAVIORS NOTED AT THIS TIME. PT ALERT TO PERSON ONLY, CONFUSION AND SHORT TERM MEMORY DEFICITS NOTED PER PT BASELINE. PT MED COMPLIANT WITHOUT DIFFICUTLY, UNABLE TO PROVIDE MED EDUCATION D/T COGNITION. PT CALM, MOOD IS STABLE. PT RESTLESS AT TIMES, REDIRECTION PROVIDED AND EFFECTIVE. NO HALLUCINATIONS OR DELUSIONS NOTED. NO SUICIDAL THOUGHTS OR BEHAVIORS NOTED THIS SHIFT. PT UP TO GERICHAIR D/T INABILITY TO AMBULATE INDEPENDENTLY. PT INCONTINENT OF BOWEL AND BLADDER, CARE PROVIDED NEEDED. PLAN IS TO MONITOR PT BEHAVIORS ON Q15 MIN SAFETY CHECKS, ENCOURAGE MED COMPLIANCE, PROVIDE EMOTIONAL SUPPORT AND 1:1 FOR PT TO VOICE FEELINGS.
--- NOTE | 2018-10-18 11:42 | NUR ---
Treatment team meeting held with Dr Rodríguez, RN, COMPOUNDER FLAVORINGS-S, and Legal Aide. Patient is to discharge today to [facility] pending insurance precert.
--- NOTE | 2018-10-18 11:45 | NUR ---
AM GROUP/EXERCISE AND BALL TOSS PT ATTENDED GROUP BUT DID NOT PARTICIPATE IN THE BALL TOSS. PT TALKED NON STOP DURING THE EXERCISES, MOSTLY NONSENSICAL. PT DID PARTICIPATE IN THE BALL TOSS GAME BUT IS UNABLE TO PARTICIPATE IN GROUP CONVERSATIONS DUE TO COGNITIVE IMPAIRMENT
--- NOTE | 2018-10-18 13:32 | NUR ---
Left a message with Lynn at [facility] to check on status of pt's insurance precert, as PT/OT evals were faxed this AM to her attention. Await return call.
--- NOTE | 2018-10-18 15:39 | NUR ---
PM GROUP/COLOR THERAPY PT ATTENDED AFTERNOON GROUP AND TALKED NON STOP AND SEEMED TO BE FIXED ON A PAST RELATIONSHIP STATING, "SHE LEFT ME AND TOOK THE TWO BOYS AND HAD ONE ON THE WAY. DO YOU THINK IF I CALL THE [facility] THEY CAM DO SOMETHING?" HE REPEATED THE STORY OVER AND OVER AND WAS CONTENT WITH HAVING SOMEONE LISTEN. PT BECAME TEARFUL A FEW TIMES.
--- NOTE | 2018-10-18 19:59 | NUR ---
POUNDING ON CHAIR. THREATENING TO "GET STAFF" WHEN HE GETS UP. UNABLE TO REDIRECT WITHOUT INCREASED AGGITATION.
[2018-10-18 20:00] VITALS: BP 117/66
--- NOTE | 2018-10-18 20:10 | NUR ---
VISTORIL GIVEN FOR INCREASED AGGITATION AND AGGRESSION.
--- NOTE | 2018-10-18 21:26 | NUR ---
VISTARIL HAD MINIMAL EFFECT ON AGGITATION AND YELLING. INCONTINENT OF STOOL AND URINE. CLEANED UP AND CHANGED.
--- NOTE | 2018-10-18 23:11 | NUR ---
EILEEN GIVEN CLIENT CONTINUES TO SCREAM, POUND ON TABLE. HAS STRIPPED HIMSELF NAKED 3 TIMES AND REDRESSED
--- NOTE | 2018-10-19 00:09 | NUR ---
APPEARS GEODON EFFECTIVE. NO POUNDING NO YELLING
--- NOTE | 2018-10-19 02:37 | NUR ---
RESTING WELL. MOVES SELF AROUND IN CHAIR
--- NOTE | 2018-10-19 05:53 | NUR ---
24 HR chart check completed.
--- NOTE | 2018-10-19 06:06 | NUR ---
SLEPT WELL PAST 0000AM
--- NOTE | 2018-10-19 07:15 | NUR ---
PHYSICAL THERAPY Patient was sound asleep in activity room Lacy chair this am when approached for therapy visit and per disucussion with [facility] staff, was informed patient received Ativan for increased Agitation. Patient unable to arouse at this time and will continue per POC as able. Karson Schaeffer, COKE OVEN PATCHER
--- NOTE | 2018-10-19 07:42 | NUR ---
OT NOTE Attempted to see pt this A.M. for OT session and upon arrival pt was asleep in the dining room while sitting reclined in caroline chair. Pt would not arouse to verbal or tactile stimuli. Will check back at a later time/date. VANCE Stiles/Funmilayo
[2018-10-19 07:55] VITALS: BP 126/68
--- NOTE | 2018-10-19 08:19 | NUR ---
Treatment team meeting held with Dr Rodríguez, RN, WEBLOGIC ADMINISTRATOR-S, and Reverberatory Furnace Supervisor. Pt is to discharge to [facility] when insurance precert is received.
--- NOTE | 2018-10-19 10:14 | NUR ---
NO ADVERSE MOODS OR BEHAVIORS NOTED AT THIS TIME. PT ALERT TO PERSON ONLY, COFUSION AND SHORT TERM MEMORY DEFICITS NOTED PER PT BASELINE. PT MED COMPLIANT WITHOUT DIFFICULTY, UNABLE TO PROVIDE MED EDUCATIO D.T COGNITION. PT CALM, MOOD IS STABLE. PT RESTLESS AT TIMES, REDIRECTION EFFECTIVE. NO HALLUCINATIONS OR DELUSIONS NOTED AT THIS TIME. NO SUICIDAL THOUGHTS OR BEHAVIORS NOTED. PT UP TO GERICHAIR D/T UNSTEADY GAIT AND LACK OF SAFETY AWARENESS. PT WILL AMBULATE WITH 1 STAFF ASSIST. PT INCONTINENT OF BOWEL AND BLADDER, CARE PROVIDED NEEDED. PLAN IS TO MONITOR PT BEHAVIORS ON Q15 MIN SAFETY CHECKS, ENCOURAGE MED COMPLIANCE, PROVIDE EMOTIONAL SUPPORT AND 1:1 FOR PT TO VOICE FEELINGS.
--- NOTE | 2018-10-19 11:15 | NUR ---
ON UNIT TO ASSESS PT, UPDATE PROVIDED.
--- NOTE | 2018-10-19 11:33 | NUR ---
AM GROUP/MUSIC AND MANICURES PT WAS SLEEPING RECLINED IN A CHAIR AND DID NOT ATTEND MORNING GROUP THERAPY. PER NURSES REPORT, PT HAD LITTLE SLEEP LAST NIGHT
--- NOTE | 2018-10-19 14:38 | NUR ---
Awaiting insurance precert for pt discharge to [facility].
--- NOTE | 2018-10-19 15:39 | NUR ---
PM GROUP/LEISURE INTERESTS PT WAS PRESENT FOR GROUP AND PARTICIPATED BY SOCIALIZING WITH A PEER. PT EXHIBITED NO AGGRESSION DURING GROUP AND IS PLEASANTLY CONFUSED.
[2018-10-19 20:03] VITALS: BP 108/59
--- NOTE | 2018-10-19 21:28 | NUR ---
Patient alert with confusion. ST/LT memory deficits noted. No SI/HI noted. No hallucinations/delusions noted at this time. Patient compliant with medications without any difficulty. Patient is calm and pleasant. Provided 1:1 with patient for emotional support. Redirected/reoriented when appropriate. Plan to encourage medication compliance and continue to provide 1:1 for emotional support. Continue to redirect/reorient when needed and appropriate. Q 15 minute safety checks continued and maintained. See [facility] flowsheet for further documentation.
--- NOTE | 2018-10-20 00:22 | NUR ---
24 HR chart check completed.
--- NOTE | 2018-10-20 05:38 | NUR ---
Patient slept approx. 5 hours throughout shift with 1 interruption. Q 15 minute safety checks continued and maintained.
[2018-10-20 08:00] VITALS: BP 110/57
--- NOTE | 2018-10-20 09:43 | NUR ---
DR. ORTIZ NOTIFIED OF MANUAL BP 82/56 WITH RADIAL PULSE OF 62. REPEAT BP CHECK IN 30 MINUTES.
--- NOTE | 2018-10-20 10:36 | NUR ---
DR. ORTIZ NOTIFIED OF MANUAL BP 90/60 WITH RADIAL PULSE OF 66; OKAY TO GIVE CARDURA ORDERED.
--- NOTE | 2018-10-20 11:41 | NUR ---
AM GROUP/REMINISCE/MUSIC PT ATTENDED AND PARTICIPATED IN GROUP TO BEST OF PT ABILITY. PT FIDGETING WITH TISSUES, PAPERS, AND WOOD PIECES TO PUT TOGETHER A MODEL AIRPLANE. PT EXPRESSED CONFUSION BUT KEPT BUSY. PT DID NOT EXPRESS ANY AGITATION AT THIS TIME. PT WILL CONTINUE TO ATTEND AN DPARTICIPATE IN FUTRUE GROUP SESSIONS.
--- NOTE | 2018-10-20 14:20 | NUR ---
PATIENT IS ALERT AND ORIENT TO PERSON WITH CONFUSION. LONG/SHORT TERM MEMORY DEFICITS. MOOD IS STABLE. TEARFUL X 1 WITH ONE ON ONE EMOTIONAL SUPPORT. NO RESPONSE TO INTERNAL STIMULI; NO VOICED STATEMENTS OF HI/SI OR PAIN. MEDICATION COMPLAINT, Q 15 MINUTE SAFETY CHECKS MAINTAINED. 1 PERSON ASSIST WITH ACTIVITIES OF DAILY LIVING, MIXED CONTINENCE OF BOWEL AND BLADDER. SET UP FOR MEALS, INTAKES ARE GOOD WITH ADEQUATE FLUIDS. AMBULATES WITH ASSIST. UP IN DOLLY CHAIR, RECLINED, RESTING WITH EYE CLOSED. CONTINUE TO MONITIOR MOOD AND AGGRESSION; PROVIDE ONE ON ONE AND REDIRECTION NEEDED.
--- NOTE | 2018-10-20 15:24 | NUR ---
Shift chart check completed.
--- NOTE | 2018-10-20 15:42 | NUR ---
PM GROUP/LEISURE SKILLS PT NAPPING IN QUIET ROOM IN CHAIR. PT WILL CONTINUE TO BE ENCOURAGED TO ATTEND AND PARTICIPATE IN FUTURE GROUP SESSIONS.
[2018-10-20 20:01] VITALS: BP 106/54
--- NOTE | 2018-10-20 22:24 | NUR ---
Patient alert with confusion. ST/LT memory deficits noted. No SI/HI noted. No hallucinations/delusions noted at this time. Patient compliant with medications without any difficulty. Patient is calm and pleasant. Provided 1:1 with patient for emotional support. Redirected/reoriented when appropriate. Plan to encourage medication compliance and continue to provide 1:1 for emotional support. Continue to redirect/reorient when needed and appropriate. Q 15 minute safety checks continued and maintained. See [facility] flowsheet for further documentation.
--- NOTE | 2018-10-21 00:12 | NUR ---
24 HR chart check completed.
--- NOTE | 2018-10-21 05:22 | NUR ---
Patient slept approx. 6 hours throughout shift. Q 15 minute safety checks continued and maintained.
[2018-10-21 08:01] VITALS: BP 100/70
--- NOTE | 2018-10-21 11:17 | NUR ---
DR. BARRAZA ON UNIT TO ASSESS PATIENT.
--- NOTE | 2018-10-21 12:11 | NUR ---
AM GROUP/SENSORY MOTOR/DISCUSSION PT ATTENDED AND PARTICIPATED INTERMEDIATE THROUGH GROUP DUE TO SLEEPING THE FIRST HALF. PT JOINED IN DISCUSSION ALTHOUGH CONFUSED AT TIMES. PT PLEASANT AND MOVING FEET ALONG TO BACKGROUND MUSIC. PT ALSO FIDGETING WITH WOODEN AIRPLANE HE HELPES THIS STAFF BUILD. PT WILL CONTINUE TO ATTEND AND PARTICIPATE TO BEST OF ABILITY IN FUTURE GROUP SESSIONS.
--- NOTE | 2018-10-21 14:25 | NUR ---
PATIENT IS ALERT AND ORIENT TO PERSON WITH CONFUSION, ABLE TO VOICE NEEDS. MOOD IS STABLE, PLEASANT DEMEANOR. LONG/SHORT TERM MEMORY DEFICITS. NO RESPONSE TO INTERNAL STIMULI OBSERVED. NO STATEMENTS OF HI/SI OR PAIN. MEDICATION COMPLAINT. Q 15 MINUTE SAFETY CHECKS MAINTAINED. 1 PERSON ASSIST WITH ACTIVITIES OF DAILY LIVING, MIXED CONTINENCE OF BOWEL AND BLADDER. SET UP FOR MEALS, INTAKES ARE GOOD WITH ADEQUATE FLUIDS. AMBULATES WITH STAFF WITH STEADY GAIT. UP IN DOLLY CHAIR FOR COMFORT. PATIENT WATCHING A MOVIE WITH OHTER PATIENTS IN DINNING ROOM. PATIENT IS INTERACTIVE WITH STAFF. CONTINUE TO MONITOR MOOD, AGGRESSION, REFUSAL OF HANDS ON CARE; PROVIDE ONE ON ONE AND NREDIRECTION NEEDED.
--- NOTE | 2018-10-21 15:34 | NUR ---
Shift chart check completed.
[2018-10-21 20:00] VITALS: BP 101/70
--- NOTE | 2018-10-21 21:00 | NUR ---
24 HR chart check completed.
--- NOTE | 2018-10-21 21:05 | NUR ---
P-CONFUSION I-PROVIDE SHORT VERBAL INTERVENTION, ASSESS ORIENTATION, ADMINISTER HS MEDICATIONS, MONITOR SLEEP R-MOOD IS STABLE. PLEASANTLY CONFUSED. ALERT TO PERSON ONLY. 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 NO AGGRESSIVE BEHAVIORS TOWARDS STAFF. HAS REMAINED CALM & PREOCCUPIED IN HIS OWN THOUGHTS & WAATCHING TV. ATE HS SNACK. COMPLIANT TAKING HS MEDICATIONS WHOLE. REQUIRES 1 ASSISTS FOR TRANSFERS. ABLE TO EXPRESS HIS NEEDS P-CONTINUE TO MONITOR & PROVIDE PHYSICAL ASSISTANCE NEEDED. MONITOR FOR AGRESSION.
--- NOTE | 2018-10-22 00:52 | NUR ---
PT WAS ASSISTED TO BED & RESTED BRIEFLY BUT KEPT ATTEMPTING TO GET OUT OF BED & CLIMB ON HIS KNEES OR STAND UP. PT ASSSITED TO DOLLY CHAIR & MOVED NEAR NURSES STATION FOR SAFETY. PT WAS RESTLESS & YELLING OUT FOR PAULA & WHISTLING. BANGING ON THE DOLLY CHAIR. MEDICATED WITH VISTARIL 50 MG PO @ 2321. WHICH HAS BEEN EFFECTIVE & PT PRESENTLY SITTING QUIETLY OCCASIONALLY CLOSING EYES.
--- NOTE | 2018-10-22 05:55 | NUR ---
VISTARIL HAS BEEN EFFECTIVE TO CALM PT BUT HE HAS REMAINED AWAKE THE ENTIRE SHIFT NODDING OFF FOR VERY BRIEF INTERVALS. HAS BEEN LOOKING QUIETLY AT [employer]. TOILETED WITH 1 ASSIST.
[2018-10-22 07:18] VITALS: BP 106/79
--- NOTE | 2018-10-22 08:25 | NUR ---
PHYSICAL THERAPY Patient seen this am for therapy visit and was sitting in activity room Lacy chair upon therapist arrival. OT pharmacy affairs assistant was present for observation only during FINANCIAL EXAMINER visit as patient reports no c/o's. Patient transfers sit to stand, Min A and ambulates ASSISTANT BRANCH MANAGER/CGA, 30'x 1, 40'x 1, demonstrating slow, unsteady gait pattern. Patient also very unsteady during backward steps and very cautious with all turns. Patient returned to activity room Lacy chair and remained with body alarm under U staff Supervision. Will continue per POC as tolerated, total treatment time 17 minutes. Karson Schaeffer, FINANCIAL EXAMINER
--- NOTE | 2018-10-22 08:40 | NUR ---
OT NOTE Pt was seen this A.M. 1:1 for 20 minute OT session with OCCUPATIONAL HEALTH NURSE and nursing staff present for observation only. Upon arrival pt was sitting upright in the dining room in his caroline chair. Pt identified by name and and had no complaints at this time. Pt was taken to his bedroom where he completed sit to stand from chair level with Lashon followed by functional mobility into the bathroom with CGA for safety. There pt transferred on/off standard commode with CGA and use of grab bar for UE support. Pt then stood sink side while washing his hands and face with Lashon due to poor sequencing of task. Pt had one LOB backwards that required Lashon to correct. OVerall pt tolerated aprox 4 minutes of static standing sink side before sitting due to fatigue. Pt was left sitting upright in the caroline chair in the dining room with body alarm on for safety and under [facility] staff supervision. Continue with rec D/C plan to SNF. VANCE Stiles/Funmilayo
--- NOTE | 2018-10-22 09:30 | NUR ---
Treatment Plan meeting with Dr. Rodríguez, RN, AT, and Hot Die Picker. Plan for discharge Today or Tommorow. Precert Pending at [facility].
[2018-10-22] MEDS ORDERED: MIRTAZAPINE15 M2 PO (10:23)
[2018-10-22] MEDS ORDERED: ATARAX,VISTARIL50 MG PO (10:23)
[2018-10-22] MEDS ORDERED: RISPERIDONE M-0.5 MG BC (10:23)
[2018-10-22] MEDS ORDERED: MEMANTINE HCL10 MG PO (10:23)
[2018-10-22] MEDS ORDERED: ROZEREM8 MG PO (10:23)
[2018-10-22] MEDS ORDERED: RISPERIDONE M-TA1 MG BC (10:23)
[2018-10-22] MEDS ORDERED: RIVASTIGMINE TAR3 M1 PO (10:23)
[2018-10-22] MEDS ORDERED: BENZTROPINE ME0.5 MG PO (10:23)
--- NOTE | 2018-10-22 11:07 | NUR ---
Clinical Updates faxed to [facility] for [facility].
--- NOTE | 2018-10-22 11:42 | NUR ---
AM GROUP/SOCIALIZATION AND COPING SKILLS PT ATTENDED GROUP AND PARTICIPATED BY COLORING AND "CLEANING" THE TABLES WITH A WIPE. PT IS VERY SOCIAL AND TALKS TO STAFF AND PEERS ALTHOUGH PLEASANTLY CONFUSED. PT EXHIBITED NO AGITATION OR AGGRESSION DURING GROUP
--- NOTE | 2018-10-22 12:14 | NUR ---
PATIENT IS ALERT TO PERSON WITH CONFUSION; LONG/SHORT TERM MEMORY DEFICTS. ABLE TO VOICE NEEDS. MOOD I STABLE; PLEASANT DEMEANOR. NO VOICED STATEMENTS OF HI/SI OR PAIN. NO RESPONSE TO INTERNAL STIMULI OBSERVED. MEDICATION COMPLAINT. Q 15 MINUTE SAFETY CHECKS MAINTAINED. 1 PERSON ASSIST WITH ACTIVITIES OF DAILY LIVING. CONTINENT OF BOWEL AND BLADDER DURING THE DAY, INCONTINENT OF NIGHT. UP IN DOLLY CHAIR FOR COMFORT. AMBULATES WITH STEADY GAIT WITH ONE ASSIST. INTERACTIVE WITH STAFF AND PARTICIPATES IN GROUP SESSION. CONTINUE TO MONITOR FOR AGGRESSION AND RESISTANCE WITH HANDS ON CARE; PROVIDE ONE ON ONE AND REDIRECTION NEEDED.
--- NOTE | 2018-10-22 15:30 | NUR ---
CALLED JOLEEN AT [facility] ABOUT PT STILL BEING HERE AND WAITING ON PRECERT TO GO TO [facility]. SHE STATES SHE HAS THAT PT WAS DISCHARGED ON 10/18 TO [facility]. EXPLAINED THAT PRECERT WAS NOT BACK FOR HIM TO GO. CONTINUED REVIEW DONE AND PT WAS APPROVED UNTIL 10/22 WITH NEXT REVIEW DAY 10/23.
--- NOTE | 2018-10-22 15:47 | NUR ---
PM GROUP/ART AND MUSIC PT ATTENDED GROUP AND PARTICIPATED BY PAINTING A BIRD HOUSE. PT WAS FOCUSED AND ON TASK. PT EXHIBITED NO AGITATION OR AGGRESSION DURING GROUP
--- NOTE | 2018-10-22 15:49 | NUR ---
Shift chart check completed.
--- NOTE | 2018-10-22 16:20 | NUR ---
DR. BARRAZA ON UNIT TO ASSESS PATIENT.
--- NOTE | 2018-10-22 19:52 | NUR ---
24 HR chart check completed.
[2018-10-22 19:54] VITALS: BP 108/74
--- NOTE | 2018-10-22 20:44 | NUR ---
P-CONFUSION I-PROVIDE SHORT VERBAL INTERVENTION, ASSESS ORIENTATION, ADMINISTER HS MEDICATIONS, MONITOR SLEEP R-MOOD IS STABLE. PLEASANTLY CONFUSED. ALERT TO PERSON ONLY. SHORT & ROLL BUCKER MEMORY DEFICITS. NO AGGRESSIVE BEHAVIORS TOWARDS STAFF. HAS REMAINED CALM & PREOCCUPIED IN HIS OWN THOUGHTS & WATCHING TV. PARTICIPATED IN GROUP ACTIVITY THIS EVENING. ATE HS SNACK. COMPLIANT TAKING HS MEDICATIONS WHOLE. MEDICATED WITH ROZEREM 8 MG PO @ 2020 FOR ASSISTANCE WITH SLEEP REQUIRES 1 ASSISTS FOR TRANSFERS. ABLE TO EXPRESS HIS NEEDS P-CONTINUE TO MONITOR & PROVIDE PHYSICAL ASSISTANCE NEEDED. MONITOR FOR AGRESSION.
--- NOTE | 2018-10-22 20:47 | NUR ---
PT ATTENDED AND PARTICIPATED TO BEST OF ABILITY. PT ATTEMPTED TO PUT A SECOND COAT OF PAINT ON HIS BIRDHOUSE BUT INSTEAD PUT THE PAINT BRUSH WITH PAINT IN HIS MOUTH. THIS STAFF IMMEDIATLEY TOOK PAINT BRUSH AND MENTAL HEALTH WORKER INFORMED. PT GIVEN WATER. PT FIDGETED WITH GREEN BALL AND EVENTUALLY FELL ASLEEP IN CHAIR. PT WILL CONTINUE TO BE ENCOURAGED TO ATTEND AND PARTICIPATE IN FUTURE GROUP SESSIONS.
--- NOTE | 2018-10-23 05:28 | NUR ---
ROZEROM HAS BEEN EFFECTIVE & PT HAS SLEPT PAST 2199 WITH 2 BRIEF AWAKENINGS TO GO TO THE BATHROOM WITH 1 ASSIST. HAS BEEN CONTINENT & CONTINENT OF URINE.
--- NOTE | 2018-10-23 07:00 | NUR ---
PHYSICAL THERAPY Patient seen this am for therapy visit and was sitting in his Lacy chair upon therapist arrival. OT registered dental assistant rda and her student were present for observation only during STENO POOL SUPERVISOR visit. Patient voices no new c/o's and was very talkative, however unable to deliver meaningful content. Patient transfers sit to stand Min A and ambulates OPTO MECHANICAL TECHNICIAN/CGA, 50' x 2, demonstrating Poor safety awareness, along with several bouts of impulsive change of gait speed. Patient needed v/c to slow down a bit and remains unsteady during all 90/180 turns. Patient returned to Lacy chair in activity room with lap tray and body alarm for safety. Patient remained under [facility] staff Supervision awaiting breakfast and will continue per POC as tolerated. Total treatment time 14 minutes. Karson Schaeffer, STENO POOL SUPERVISOR
--- NOTE | 2018-10-23 07:12 | NUR ---
OT Note Pt seen this AM 1:1 for 15 minute OT session with nursing staff and TOILET AND LAUNDRY SOAP SUPERVISOR present for observation only. Upon arrival pt was lying supine in bed. Pt identified by name and and had not complaints at this time. Pt performed supine-sit bed mobility to EOB with mod A. LB dressing was addressed at EOB that consisted of donning under garmets and pants requiring max A to initate task due to confusion. Sit-stand with min A performed to complete task which required max A. Pt transfered to caroline chair with CGA. UB dressing which included donning t-shirt while sitting in caroline chair which required verbal and tactile cues to complete task due to being off task and confused. Patient performed functional mobility to dining room area starting with PHARMACIST'S AIDE and completing task with stand by. Patient was left in dining room area in caroline chair with body alarm on for safety under [facility] supervision. Continue with rec D/C to SNF and then to LTC. [place] GRAF/student VANCE Stiles/Funmilayo
[2018-10-23 07:32] VITALS: BP 124/64
--- NOTE | 2018-10-23 09:19 | NUR ---
Patient alert with confusion. ST/LT memory deficits noted. No SI/HI noted. No hallucinations/delusions noted at this time. Patient compliant with medications without any difficulty. Patient is calm and pleasant. Provided 1:1 with patient for emotional support. Redirected/reoriented when appropriate. Plan to encourage medication compliance and continue to provide 1:1 for emotional support. Continue to redirect/reorient when needed and appropriate and to continue to encourage participation in group. Q 15 minute safety checks continued and maintained. See [facility] flowsheet for further documentation.
--- NOTE | 2018-10-23 11:07 | NUR ---
Call Placed to Eleonora at [facility] . Inquired about Auth for Nursing Facility. Eleonora states patient is approved and that Nursing facility was notified this a.m. Call to [facility] and Spoke with Lynn. Authorization was received this a.m. Liason was to communicate that to the discharging hospital. Advised that Hospital has been waiting since yesterday when Dr. Rodríguez wanted to discharge Patient. Lynn Apologized and states that she will reach out to Hospital Liason. Call Placed to Pt. Daughter Anaya Patel and Left message for her to return call to discuss discharge time and merchandise pickup/receiving associate.
--- NOTE | 2018-10-23 11:23 | NUR ---
CALL PLACED [phone] TO MAKE AWARE OF DISCHARGE. NO ANSWER. RECIEVED CALL BACK, MADE AWARE PT BEING DISCHARGED TODAY AT 3PM TO NURSING FACILITY.
--- NOTE | 2018-10-23 11:40 | NUR ---
AM GROUP/SELF-CARE FOR ANXIETY PT DID NOT ATTEND MORNING GROUP THERAPY. PT WAS SLEEPING RECLINED IN A DOLLY CHAIR IN THE QUIET ROOM. PER NURSES REPORT PT HAD POOR SLEEP LAST NIGHT
--- NOTE | 2018-10-23 12:30 | NUR ---
CALLED JOLEEN FROM [facility] AND INFORMED HER THAT PT IS SCHEDULED TO BE DISCHARGED AFTER 3 PM TODAY.
--- NOTE | 2018-10-23 12:49 | NUR ---
Called [facility] facility and nurse to nurse report given. [facility] nurse said "ok,thank you".
--- NOTE | 2018-10-23 13:07 | NUR ---
Discharge wound photos taken as per hospital policy. Patient tolerated well.
--- NOTE | 2018-10-23 14:03 | NUR ---
Patient discharging to [facility] today. Follow-up will be with Dr Rodríguez, visiting psychiatrist. While at [facility], pt's behaviors improved. Pt continues to be pleasantly confused and iteracts well with staff.
--- NOTE | 2018-10-23 14:12 | NUR ---
Spoke with pt's daughter Anaya Patel and provided pt update. Discussed pt discharging today. This administrative underwriter provided additonal educations to Anaya about dementia and the progression of the illness.
--- NOTE | 2018-10-23 14:28 | NUR ---
Discharge Paperwork Faxed to [facility] Attn: Lynn.
--- NOTE | 2018-10-23 15:06 | NUR ---
Discharged via stretcher with [facility] to [facility]. Discharge papers in envelope sent with ambulance team. Patient having no distress noted at this time.
--- NOTE | 2018-10-23 15:29 | NUR ---
PM GROUP/MUSIC AND RELAXATION PT WAS PRESENT FOR GROUP AND HAS BEEN DISCHARGED FROM THE UNIT.
--- NOTE | 2018-10-24 07:42 | NUR ---
OCCUPATIONAL THERAPY CO-SIGN I approve of the Occupational Therapy notes written above. CONY FROST OTR/Funmilayo
--- NOTE | 2018-10-24 18:01 | NUR ---
PHYSICAL THERAPY CO-SIGN I approve of the Phyical Therapy notes written above. CHRISTINA DUARTE
== END 2018-10-23 15:05 | disposition other institution (70) | DRG 57 ==
LOC: 3N 14:23
PROVIDERS: ADMIT Psychiatry & Neurology Psychiatry
PROC: BD1BYZZ Fluoroscopy of Mouth/Oropharynx using Other Contrast (ICD-10-PCS; principal; 2018-10-12)
DX: G30.9 Alzheimer's disease, unspecified (principal); F33.3 Major depressive disorder, recurrent, severe with psychotic symptoms; F23 Brief psychotic disorder; N39.0 Urinary tract infection, site not specified; E44.0 Moderate protein-calorie malnutrition; F02.81 Dementia in other diseases classified elsewhere, unspecified severity, with behavioral disturbance; R41.9 Unspecified symptoms and signs involving cognitive functions and awareness; R53.1 Weakness; E03.9 Hypothyroidism, unspecified; N40.0 Benign prostatic hyperplasia without lower urinary tract symptoms; D64.9 Anemia, unspecified; Z91.14 Patient's other noncompliance with medication regimen; Z87.440 Personal history of urinary (tract) infections; Z88.8 Allergy status to other drugs, medicaments and biological substances; Z79.899 Other long term (current) drug therapy; Z68.27 Body mass index [BMI] 27.0-27.9, adult